=== PATIENT | male | born 1990 | race Caucasian/White ===

== ENCOUNTER 2017-08-11 14:54 | Emergency (ER) | payer BC, SELFPAY ==
[2017-08-11 14:55] VITALS: BP 137/84; PULSE 76; RESP 20; TEMP 36.6; O2SAT 99; BMI 29.0
--- NOTE | 2017-08-11 15:24 | CT_ITS ---
CT abdomen pelvis wo con CLINICAL INDICATION: ITS.REASON: LLQ PAIN ORDERING PHYSICIAN: Darcy Coffey MD PATIENT AGE: 27 years COMPARISON: None TECHNIQUE: Axial images obtained with sagittal and coronal reformats. PROCEDURE: Oral Contrast: None IV Contrast: None . FINDINGS: There is a moderate sized hiatal hernia. Calcified granuloma is present in the left lower lobe. The liver, gallbladder, spleen, adrenal glands, and pancreas have an unremarkable unenhanced CT appearance. No renal calculi or hydronephrosis. No obstructing ureteral calculi. There are few small retroperitoneal lymph nodes which are nonspecific. No intestinal obstruction or free air. There is some hyperdensity at the base of the appendix which may be due to an appendicolith. No evidence of appendicitis or diverticulitis. There is a mild amount retained colonic feces no focal inflammatory change evident. No acute finding in the pelvis. No acute bony anomalies. There is mild thoracic kyphosis with mild chronic appearing wedging of lower thoracic vertebral body. IMPRESSION: No acute abdominal or pelvic findings Mild amount retained colonic feces Moderate-sized hiatal hernia
--- NOTE | 2017-08-11 15:29 | HMH.EDABDPAI ---
ED Disposition Clinical Impression: Hiatal hernia with gastroesophageal reflux disease and esophagitis Disposition: Home, Self-Care Condition on Discharge: Fair Instructions: DI for Hiatal Hernia Additional Instructions: Elevate HOB on blocks and take Gas X as directed. 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 The time I documented below is in addition to time spent performing reported procedures but includes the following listed in this critical care notation. Medical Decision Making Vital Signs: 08/11/17 14:55 08/11/17 16:23 Temperature 97.9 F Temperature Source Oral Pulse Rate [Right Radial] 76 94 H Respiratory Rate 20 20 Blood Pressure [Right Arm] 137/84 139/67 Blood Pressure Mean [Right Arm] 101 91 Blood Pressure Source [Right Arm] Automatic Cuff Blood Pressure Position [Right Arm] Sitting 02 Sat by Pulse Oximetry 99 99 Oxygen Delivery Method Room Air Room Air - Lab Data Lab results reviewed: Yes: I reviewed the patient's lab results. Lab Results 08/11/17 15:12: WBC 7.7, RBC 5.13, Hgb 16.1, Hct 46.1, MCV 89.8, MCH 31.3 H, MCHC 34.9, RDW 12.6, Plt Count 270, MPV 8.2, Neut % (Auto) 48.4, Lymph % (Auto) 41.3, [place] % (Auto) 7.3, Eos % (Auto) 2.4, Baso % (Auto) 0.6, Neut # (Auto) 3.7, Lymph # (Auto) 3.2, [place] # (Auto) 0.6, Eos # (Auto) 0.2, Baso # (Auto) 0.1 08/11/17 15:12: Sodium 137, Potassium 4.2, Chloride 100, Carbon Dioxide 32, Anion Gap 9.2, BUN 9, Creatinine 0.90, Estimated Creat Clear 171, Estimated GFR 100, Est GFR ( Amer) 121, Glucose 100, Calcium 9.3, Total Bilirubin 0.2, AST 16, ALT 28, Alkaline Phosphatase 112, Total Protein 7.4, Albumin 3.8, Globulin 3.6 H, Albumin/Globulin Ratio 1.1, Amylase 52 08/11/17 15:12: Lipase 92 08/11/17 15:26: Urine Color Yellow, Urine Appearance Clear, Urine pH 6.5, Ur Specific [place] 1.015, Urine Protein Negative, Urine Glucose (UA) Negative, Urine Ketones Negative, Urine Blood Negative, Urine Nitrate Negative, Urine Bilirubin Negative, Urine Urobilinogen 0.2, Ur Leukocyte Esterase Negative, Ur Squamous Epith Cells Occasional, Urine Bacteria Trace Result diagrams: 08/11/17 15:12 08/11/17 15:12 Orders (Tests/Meds): ED MEDICATIONS Generic Name Dose Route Start Last Admin Trade Name Freq PRN Reason Stop Dose Admin Sodium Chloride 10 ml 08/11/17 15:25 Saline Flush 10ml Syringe IV 09/10/17 15:24 NEEDED PRN Maintain IV Site Discontinued Medications Generic Name Dose Route Start Last Admin Trade Name Freq PRN Reason Stop Dose Admin Sodium Chloride 1,000 mls @ 999 mls/hr 08/11/17 15:30 08/11/17 15:27 Sod Chloride 0.9% 1000ml Bag IV 08/11/17 16:30 999 mls/hr .Q1H1M AJ Administration Ketorolac Tromethamine 30 mg 08/11/17 15:26 08/11/17 15:28 Toradol 30mg/Ml Vial IV 08/11/17 15:27 30 mg ONCE ONE Administration Ondansetron HCl 4 mg 08/11/17 15:26 08/11/17 15:28 Zofran 4mg/2ml Vial IV 08/11/17 15:27 4 mg ONCE ONE Administration Pantoprazole Sodium 40 mg 08/11/17 15:35 08/11/17 17:42 Protonix 40mg Vial IV 08/11/17 15:36 40 mg ONCE ONE Administration Sodium Chloride 8 ml 08/11/17 15:35 Saline Flush 10ml Syringe IV 08/11/17 15:36 ONCE ONE - CT Data CT Scan: Abdomen, Pelvis Time Received: 18:[address] Reviewed: Yes: I have reviewed the patient's CT results, I
--- NOTE | 2017-08-11 15:32 | ED_ITS ---
ED Disposition Clinical Impression: Hiatal hernia with gastroesophageal reflux disease and esophagitis Disposition: Home, Self-Care Condition on Discharge: Fair Instructions: DI for Hiatal Hernia Additional Instructions: Elevate HOB on blocks and take Gas X as directed. 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 The time I documented below is in addition to time spent performing reported procedures but includes the following listed in this critical care notation. Medical Decision Making Vital Signs: 08/11/17 14:55 08/11/17 16:23 Temperature 97.9 F Temperature Source Oral Pulse Rate [Right Radial] 76 94 H Respiratory Rate 20 20 Blood Pressure [Right Arm] 137/84 139/67 Blood Pressure Mean [Right Arm] 101 91 Blood Pressure Source [Right Arm] Automatic Cuff Blood Pressure Position [Right Arm] Sitting 02 Sat by Pulse Oximetry 99 99 Oxygen Delivery Method Room Air Room Air - Lab Data Lab results reviewed: Yes: I reviewed the patient's lab results. Lab Results 08/11/17 15:12: WBC 7.7, RBC 5.13, Hgb 16.1, Hct 46.1, MCV 89.8, MCH 31.3 H, MCHC 34.9, RDW 12.6, Plt Count 270, MPV 8.2, Neut % (Auto) 48.4, Lymph % (Auto) 41.3, [place] % (Auto) 7.3, Eos % (Auto) 2.4, Baso % (Auto) 0.6, Neut # (Auto) 3.7 , Lymph # (Auto) 3.2, [place] # (Auto) 0.6, Eos # (Auto) 0.2, Baso # (Auto) 0.1 08/11/17 15:12: Sodium 137, Potassium 4.2, Chloride 100, Carbon Dioxide 32, Anion Gap 9.2, BUN 9, Creatinine 0.90, Estimated Creat Clear 171, Estimated GFR 100, Est GFR ( Amer) 121, Glucose 100, Calcium 9.3, Total Bilirubin 0.2, AST 16, ALT 28, Alkaline Phosphatase 112, Total Protein 7.4, Albumin 3.8, Globulin 3.6 H, Albumin/Globulin Ratio 1.1, Amylase 52 08/11/17 15:12: Lipase 92 08/11/17 15:26: Urine Color Yellow, Urine Appearance Clear, Urine pH 6.5, Ur Specific [place] 1.015, Urine Protein Negative, Urine Glucose (UA) Negative, Urine Ketones Negative, Urine Blood Negative, Urine Nitrate Negative, Urine Bilirubin Negative, Urine Urobilinogen 0.2, Ur Leukocyte Esterase Negative, Ur Squamous Epith Cells Occasional, Urine Bacteria Trace Result diagrams: 08/11/17 15:12 08/11/17 15:12 Orders (Tests/Meds): ED MEDICATIONS Generic Name Dose Route Start Last Admin Trade Name Freq PRN Reason Stop Dose Admin Sodium Chloride 10 ml 08/11/17 15:25 Saline Flush 10ml Syringe IV 09/10/17 15:24 NEEDED PRN Maintain IV Site Discontinued Medications Generic Name Dose Route Start Last Admin Trade Name Freq PRN Reason Stop Dose Admin Sodium Chloride 1,000 mls @ 999 mls/hr 08/11/17 15:30 08/11/17 15:27 Sod Chloride 0.9% 1000ml Bag IV 08/11/17 16:30 999 mls/hr .Q1H1M AJ Administration Ketorolac Tromethamine 30 mg 08/11/17 15:26 08/11/17 15:28 Tor[place]
[2017-08-11 15:43] LABS: Appearance,Urine CLEAR (Clear); Bilirubin,Urine Negative (Negative); Blood, Urine Negative (Negative); Color,Urine YELLOW (Yellow); Glucose,Urine (UA) Negative (Negative); Ketones,Urine Negative (Negative); Leukocyte Esterase,Urine Negative (Negative); Microscopic, Urine URINE MICROSCOPIC (MICROSCOPIC); Nitrate,Urine Negative (Negative); PH,Urine 6.5 (5.0-8.5); Protein,Urine Negative (Negative); Specific Gravity, Urine 1.015 (1.005-1.030); Urobilinogen,Urine 0.2 EU/dl (0.2)
[2017-08-11 15:45] LABS: Basophils # 0.1 K/mm3 (0-0.2); Basophils % 0.6 % (0.1-2.0); Eosinophils # 0.2 K/mm3 (0.0-0.4); Eosinophils % 2.4 % (0.1-12.0); Hematocrit 46.1 % (42.0-52.0); Hemoglobin 16.1 g/dL (14.1-18.0); Lymphocytes # 3.2 K/mm3 (0.7-4.5); Lymphocytes % 41.3 K/mm3 (10-50); Mean Corpuscular HGB Conc 34.9 g/dL (31.8-35.4); Mean Corpuscular Hemoglobin 31.3 pg (27.0-31.2); Mean Corpuscular Volume 89.8 fl (80-94); Mean Platelet Volume 8.2 fl (7.4-10.4); Monocytes # 0.6 K/mm3 (0.1-1.0); Monocytes % 7.3 % (1.7-9.3); Neutrophils # 3.7 K/mm3 (1.8-7.8); Neutrophils % 48.4 % (37.0-80.0); Platelet Count 270 K/mm3 (142-424); Red Blood Count 5.13 M/mm3 (4.60-6.20); Red Cell Distribution Width 12.6 % (11.5-17.5); White Blood Count 7.7 K/mm3 (4.8-10.8)
[2017-08-11 15:51] LABS: Bacteria,Urine Trace /lpf; Squamous Epithelial Cell,Urine Occasional #/hpf (0-5)
[2017-08-11 16:02] LABS: Alanine Aminotransferase 28 U/L (12-78); Albumin Level 3.8 gm/dL (3.4-5.0); Albumin/Globulin Ratio 1.1 (1.1-1.8); Alkaline Phosphatase 112 U/L (46-116); Amylase 52 U/L (25-125); Anion Gap 9.2 mEq/L (5-15); Aspartate Amino Transferase 16 U/L (15-37); Bilirubin,Total 0.2 mg/dL (0.2-1.0); Blood Urea Nitrogen 9 mg/dL (7-18); Calcium 9.3 mg/dL (8.5-10.1); Carbon Dioxide 32 mmol/L (21.0-32.0); Chloride 100 mmol/L (98-107); Creatinine Clearance Estimated 171 mL/min (0-300); Estimated Glomerular Filt Rate 100 ml/min (>60); GFR (African American) 121 ML/MIN (>60); Globulin 3.6 gm/dl (1.3-3.2); Glucose 100 mg/dL (74-106); Potassium 4.2 mmoL/L (3.5-5.1); Sodium 137 mmol/L (136-145); Total Protein,Serum 7.4 gm/dL (6.4-8.2)
[2017-08-11 16:23] VITALS: BP 139/67; PULSE 94; RESP 20; O2SAT 99
--- NOTE | 2017-08-11 16:26 | PC.NURSE ---
PT RESTING COMFORTABLY PS: 12/11
[2017-08-11 16:32] LABS: Lipase 92 u/L (73-393)
== END 2017-08-11 18:51 | disposition home or self-care (01) ==
PROVIDERS: Emergency Provider General Practice; Family Provider Family Medicine; PCP Family Medicine
DX: K44.9 Diaphragmatic hernia without obstruction or gangrene (principal); K21.0 Gastro-esophageal reflux disease with esophagitis; Z88.0 Allergy status to penicillin; Z87.442 Personal history of urinary calculi
CPT/HCPCS: 74176; 80053; 81001; 82150; 83690; 85025; 96365; 96375; 99284; J2405

== ENCOUNTER 2020-07-09 14:17 | Emergency (ER) | payer BC, SELFPAY ==
[2020-07-09] VITALS (7 sets, daily range): BP systolic 119–170; BP diastolic 75–106; PULSE 75–121; RESP 16–20; TEMP 36.6; O2SAT 93–98; BMI 30.3
[2020-07-09 14:44] LABS: Basophils # 0.1 K/mm3 (0-0.2); Basophils % 0.5 % (0.1-2.0); Eosinophils # 0.1 K/mm3 (0.0-0.4); Eosinophils % 0.7 % (0.1-12.0); Hematocrit 45.7 % (42.0-52.0); Hemoglobin 15.8 g/dL (14.1-18.0); Lymphocytes # 3.8 K/mm3 (0.7-4.5); Lymphocytes % 45.2 % (10-50); Mean Corpuscular HGB Conc 34.6 g/dL (31.8-35.4); Mean Corpuscular Hemoglobin 31.1 pg (27.0-31.2); Mean Corpuscular Volume 90.1 fl (80-94); Monocytes # 0.5 K/mm3 (0.1-1.0); Neutrophils % 47.6 % (37.0-80.0); Platelet Count 310 K/mm3 (142-424); Red Blood Count 5.07 M/mm3 (4.60-6.20); Red Cell Distribution Width 12.7 % (11.5-17.5); White Blood Count 8.5 K/mm3 (4.8-10.8)
[2020-07-09 15:02] LABS: Chloride 102 mmol/L (98-107); Potassium 3.5 mmoL/L (3.5-5.1); Sodium 138 mmol/L (136-145)
--- NOTE | 2020-07-09 15:04 | CT_ITS ---
PROCEDURE: CT ABDOMEN PELVIS W CON CLINICAL INDICATION: PAIN Left upper quadrant pain COMPARISON: CT ABDPELWO CT abdomen pelvis wo con from 08/11/[address] abdomen pelvis w con from 03/11/2018 TECHNIQUE: IV Contrast: 75ML Isovue 370 Oral Contrast None Axial images obtained with sagittal and coronal reformats. All CT scans at the facility use one or more dose reduction, viz: automated exposure control, ma/kV adjustment per patient size (including targeted exams where dose is matched to indication, i.e. head), or iterative reconstruction technique. FINDINGS: There has been prior knee since fundoplication. Hyperdensity noted at the surgical site posteriorly and is not significantly changed from an older exam of 03/11/2018. There is some minimal pericardial thickening. The liver, gallbladder, spleen, adrenal glands, pancreas, and kidneys have an unremarkable appearance. The appendix is slightly prominent but not significantly changed. No intestinal obstruction or free air. There is a moderate amount of retained colonic feces. There are degenerative changes in the lower thoracic spine with kyphosis IMPRESSION: Status post prior Juan M fundoplication. Constipation Dictated by: Perry Leyva MD 07/10/2020 07:06 Perry Leyva MD in [place] 07/10/2020 07:06
[2020-07-09 15:05] LABS: Alanine Aminotransferase 29 U/L (12-78); Alkaline Phosphatase 134 U/L (38-126); Amylase 57 U/L (30-110); Anion Gap 11.5 mEq/L (5-15); Aspartate Amino Transferase 44 U/L (17-59); Bilirubin,Total 0.5 mg/dl (0.2-1.3); Blood Urea Nitrogen 13 mg/dl (9-20); Calcium 9.4 mg/dl (8.4-10.2); Carbon Dioxide 28 mmol/L (22.0-30.0); Creatinine Clearance Estimated 174 mL/min (50-200); Estimated Glomerular Filt Rate 98 ml/min (>60); GFR (African American) 118 ML/MIN (>60); Glucose 110 mg/dl (74-100)
[2020-07-09 15:06] LABS: Albumin Level 4.6 g/dl (3.5-5.0); Albumin/Globulin Ratio 1.6 (1.1-1.8); Globulin 2.9 g/dL (1.3-3.2); Lipase 94 U/L (23-300); Total Protein,Serum 7.5 g/dl (6.3-8.2)
--- NOTE | 2020-07-09 16:03 | HMH.EDGENADL ---
ED Disposition Clinical Impression: Left upper quadrant abdominal pain, History of Naz fundoplication Incisional hernia Qualifiers: Obstruction and gangrene presence: without obstruction or gangrene Qualified Code(s): K43.2 - Incisional hernia without obstruction or gangrene Disposition: Home, Self-Care Condition on Discharge: Good Additional Instructions: See Dr. Conti in his office tomorrow. Call tomorrow morning to make that appointment. Take your CAT scan disc with you. Return to the emergency department if worsening pain or nausea/dry heaves or if you develop fever or severe abdominal distention. Additional instructions for CONTROLLED SUBSTANCES: You have been prescribed a medication that is a controlled substance. Controlled substances include pain medications known as opiates and sedative nerve medications known as benzodiazepines. Tramadol, fioricet, and gabapentin are also controlled substances. Some common opiates include: Codeine (such as Tylenol #3) Hydrocodone (Vicodin, Lortab, Lorcet, Carter) Oxycodone (Percocet, Percodan, Oxycodone, Oxy IR) Some common benzodiazepines include: Diazepam (Valium) Lorazepam (Ativan) Alprazolam (Xanax) Clonazepam (Klonopin) Oxazepam (Serax) All of these controlled substances are highly addictive and frequently abused. Misuse can and frequently does lead to addiction as well as overdose and . Medication should be stored in a locked cabinet or other secure storage unit. Do not store the medication in a motor vehicle. Short term supplies, 3 days or less, are prescribed because of the highly addictive nature of the medication. Any of the controlled substance medication NOT taken should be disposed of properly and NOT SAVED. The recommended method of disposing of unused medications is: Place the medicines in a sealable plastic bag. If the medicine is a solid, crush it or add water to dissolve it. Add something undesirable (cat litter, coffee grounds, etc.) Dispose of sealed bag in household trash Do not flush or pour unused medicines down a sink or drain. Controlled substances should not be shared, given away or sold. Because of the addictive nature and frequent abuse, these medications are sometimes stolen. These medications should be kept in a safe place where they cannot be stolen. Do not keep them in your car or purse. Lost or stolen prescriptions for controlled substances WILL NOT BE REFILLED in this emergency department, regardless of whether a police report was filed. Referrals: Flora Key MD [Primary Care Provider] - - Critical Care Critical Care Time: No Attestation: On 07/09/20, the high probability of a clinically significant, sudden or life threatening deterioration of the following system(s) required my full and direct attention, intervention and personal management. The time I documented below is in addition to time spent performing reported procedures but includes the following listed in this critical care notation. Medical Decision Making - Martín Inquiry Pt receiving controlled substance: Yes Martín was queried for this patient: No Reason not queried -: Emergent pt cond-no time Risks and benefits of using a controlled substance: were not discussed with pt by me Vital Signs: 07/09/20 14:18 07/09/20 15:48 07/09/20 16:00 Temperature 98 F Temperature Source Oral Pulse Rate [Radial] 121 H 91 H 106 H Respiratory Rate 20 Blood Pressure [Right Arm] 149/88 H 170/106 H 158/101 H Blood Pressure Mean [Right Arm] 108 127 120 Blood Pressure Source [Right Arm] Automatic Cuff Automatic Cuff Blood Pressure Position [Right Arm] Sitting Sitting Sitting 02 Sat by Pulse Oximetry 98 95 97 Oxygen Delivery Method Room Air Room Air Room Air 07/09/20 16:30 07/09/20 17:00 Temperature Temperature Source Pulse Rate [Radial] 87 89 Respiratory Rate Blood Pressure [Right Arm] 126/79 124/82 Blood Pressure Mean [Right Arm] 94 96
--- NOTE | 2020-07-09 16:23 | ECG_ITS ---
APPROVED REPORT Exam: Resting ECG HR:82 bpm ECG Measurements Heart Rate 82 AXES OH 142 P 27 QRSd 80 QRS 52 QT 350 T 34 QTc 408 Conclusion Normal sinus rhythm Normal ECG Electronically signed by : Boris Garcia, 07/09/2020 19:53:47
[2020-07-09 16:40] LABS: D-Dimer 0.35 ug/mL (0.15-8.0)
[2020-07-09 16:49] LABS: Troponin I < 0.01 ng/ml (0.00-0.034)
--- NOTE | 2020-07-09 17:08 | XR_ITS ---
PROCEDURE: XR CHEST PORTABLE CLINICAL HISTORY: CHEST PAIN COMPARISON: CR CXR CHEST(2 VIEWS-NOT PORTABLE) from 10/15/2012 CR CXR CHEST(2 VIEWS-NOT PORTABLE) from 12/27/[address] ABDOMEN PELVIS WO CON from 07/09/2020 FINDINGS: Unremarkable cardiovascular structures. There is a small hiatal hernia. The lungs are clear without infiltrates, suspicious nodules, or pleural effusions. No acute bony abnormalities. IMPRESSION: Hiatal hernia otherwise negative Dictated by: Perry Leyva MD 07/10/2020 05:04 Perry Leyva MD in [place] 07/10/2020 05:04
--- NOTE | 2020-07-09 17:56 | PC.NURSE ---
[facility] [place] [facility] non destructive testing inspector for dr rajan regalado
--- NOTE | 2020-07-09 18:01 | PC.NURSE ---
Dr Dale speaking with Dr Maribeth Whitney.
== END 2020-07-09 18:23 | disposition home or self-care (01) ==
PROVIDERS: Emergency Provider Emergency Medicine; PCP Family Medicine
DX: R10.12 Left upper quadrant pain (principal); K43.2 Incisional hernia without obstruction or gangrene; Z98.890 Other specified postprocedural states; Z88.0 Allergy status to penicillin; F41.9 Anxiety disorder, unspecified; Z79.899 Other long term (current) drug therapy
CPT/HCPCS: 71045; 74177; 80053; 82150; 83690; 84484; 85025; 85378; 93005; 96365; 96375; 96376; 99284; J2405; Q9967

== ENCOUNTER 2020-07-09 20:22 | Emergency (ER) | payer BC, SELFPAY ==
[2020-07-09] VITALS (7 sets, daily range): BP systolic 120–162; BP diastolic 68–95; PULSE 65–95; RESP 16–18; TEMP 36.5–36.7; O2SAT 97–100; BMI 30.3
--- NOTE | 2020-07-09 20:48 | PC.NURSE ---
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
--- NOTE | 2020-07-09 20:58 | HMH.EDGENADL ---
ED Disposition Clinical Impression: Abdominal pain Qualifiers: Abdominal location: epigastric Qualified Code(s): R10.13 - Epigastric pain Disposition: Home, Self-Care Condition on Discharge: Good Instructions: DI for Acute Pain -- Adult Additional Instructions: keep appt in am Referrals: Flora Key MD [Primary Care Provider] - - Critical Care Critical Care Time: No Attestation: On 07/09/20, the high probability of a clinically significant, sudden or life threatening deterioration of the following system(s) required my full and direct attention, intervention and personal management. The time I documented below is in addition to time spent performing reported procedures but includes the following listed in this critical care notation. Medical Decision Making - Medical Records Medical records reviewed: Yes: I reviewed the patient's medical records. - Martín Inquiry Pt receiving controlled substance: No Vital Signs: 07/09/20 20:25 07/09/20 20:55 07/09/20 22:25 Temperature 98.0 F Temperature Source Oral Pulse Rate [Left Radial] 95 H 89 81 Respiratory Rate 16 16 16 Blood Pressure [Right Arm] 162/95 H 126/81 138/68 Blood Pressure Mean [Right Arm] 117 96 91 Blood Pressure Source [Right Arm] Automatic Cuff Automatic Cuff Automatic Cuff Blood Pressure Position [Right Arm] Sitting Sitting Sitting 02 Sat by Pulse Oximetry 100 99 97 Oxygen Delivery Method Room Air Room Air Room Air 07/09/20 22:30 07/09/20 23:00 Temperature Temperature Source Pulse Rate [Left Radial] 65 65 Respiratory Rate Blood Pressure [Right Arm] 138/68 127/80 Blood Pressure Mean [Right Arm] 91 95 Blood Pressure Source [Right Arm] Automatic Cuff Automatic Cuff Blood Pressure Position [Right Arm] Sitting Sitting 02 Sat by Pulse Oximetry 98 98 Oxygen Delivery Method Room Air Room Air - Lab Data Lab results reviewed: Yes: I reviewed the patient's lab results. Orders (Tests/Meds): ED MEDICATIONS Discontinued Medications Generic Name Dose Route Start Last Admin Trade Name Freq PRN Reason Stop Dose Admin Diatrizoate Meglum/Diatrizoate Sod 30 ml 07/09/20 21:16 07/09/20 21:17 Diatrizoate Demetra 66% & Diatrizoate Na 10% 30ml Udc PO 07/09/20 21:17 30 ml ONCE ONE Administration Hydromorphone HCl 2 mg 07/09/20 21:03 12/06/20 21:18 Hydromorphone 2mg/Ml Syringe IV 07/09/20 21:04 2 mg ONCE ONE Administration ORDERS Category Date Time Status CT abdomen pelvis wo con Stat Cat Scan 07/09/20 21:20 Taken - CT Data CT Scan: Abdomen Time Received: 23:[address] Reviewed: Yes: I have viewed the radiologist's interpretation Preliminary Findings: Normal/NAD (no obstruction) General Adult HPI - General Chief complaint: PAIN Stated complaint: Pain in Ribs lft side Time Seen by Provider: 07/09/20 21:08 Mode of Arrival: Ambulatory Source of Information: Patient, Medical Record Limitations: No Limitations Description of Symptoms (Recalled from ER Triage Doc. by RN): pt was seen in the ER earlier today and diagnosed with a hernia. pt has an appointment with his surgeon in the morning but stated he has had an increase in pain. pt denies any nausea at this time and stated he was sent home with phenergan that has given him relief. - History of Present Illness HPI narrative: pt with hx of prev surg at epigastric area with pain - was seen in the ed - pt has increased pain at prev surg site - no vomiting Onset (ago): hour(s) Location: abdomen Severity: moderate Associated symptoms: denies other symptoms - Related Data Home Medications Medication Instructions Recorded Confirmed Dextroamphetamine/Amphetamine 30 mg PO DAILY 12/01/17 12/08/18 [Adderall Xr 30 mg Capsule] Omeprazole [Omeprazole 20mg 20 mg PO DAILY 12/01/17 12/08/18 Capsule] Hydrocodone/Acetaminophen [Lortab 15 ml PO Q4HP PRN 03/11/18 12/08/18 7.5/325mg 15mL UDC] ALPRAZolam [Xanax 2mg Tab] 2 mg PO TID 12/08/18 12/08/18
--- NOTE | 2020-07-09 21:14 | PC.NURSE ---
pt mother at bedside at this time
--- NOTE | 2020-07-09 21:20 | CT_ITS ---
PROCEDURE: CT ABDOMEN PELVIS WO CON CLINICAL INDICATION: abd. pain Epigastric pain with nausea COMPARISON: CT ABDPELW CT abdomen pelvis w con from 03/11/[address] ABDOMEN PELVIS W CON from 07/09/2020 TECHNIQUE: Axial images obtained with sagittal and coronal reformats. All CT scans at the facility use one or more dose reduction, viz: automated exposure control, ma/kV adjustment per patient size (including targeted exams where dose is matched to indication, i.e. head), or iterative reconstruction technique. FINDINGS: LOWER THORAX: S/p Juan M fundoplication.. There are some hyperdensities along the posterior aspect of the operative bed which are similar to 03/11/2018. ABDOMEN & PELVIS: Numerous surgical clips are present in the left upper quadrant lateral to the stomach. Status post knee some fundoplication. The liver, spleen, adrenal glands, pancreas, and kidneys have an unremarkable appearance. There is some residual contrast within the renal collecting system. No intestinal obstruction or free air. There is mild prominence of the appendix which had a similar appearance on a older study of 03/11/2018. No stranding of the periappendiceal fat. Bowel gas pattern is nonspecific. No intestinal obstruction or free air. No pelvic mass or abnormal fluid collection. There are degenerative changes in the thoracic spine with kyphosis of the lower thoracic spine. IMPRESSION: 1. Status post knee since fundoplication with postsurgical changes. 2. Mild prominence of the appendix which is not significantly changed. 3. Thoracic kyphosis with spondylosis Dictated by: Perry Leyva MD 07/10/2020 06:26 Perry Leyva MD in [place] 07/10/2020 06:26
--- NOTE | 2020-07-09 21:20 | PC.NURSE ---
RAD informed that pt finished PO contrast and to only wait 15 minutes for scan
--- NOTE | 2020-07-09 21:50 | PC.NURSE ---
pt to RAD
--- NOTE | 2020-07-09 22:43 | PC.NURSE ---
called RAD and asked about pt CT report
--- NOTE | 2020-07-09 23:22 | PC.NURSE ---
RAD stated pt CT scan is being read at this time. still no results
== END 2020-07-09 23:47 | disposition home or self-care (01) ==
PROVIDERS: Emergency Provider Emergency Medicine; PCP Family Medicine
DX: R10.13 Epigastric pain (principal); R10.12 Left upper quadrant pain; K43.2 Incisional hernia without obstruction or gangrene; Z88.0 Allergy status to penicillin; F41.9 Anxiety disorder, unspecified; Z79.899 Other long term (current) drug therapy
CPT/HCPCS: 74176; 96375; 99283

== ENCOUNTER 2020-11-12 19:56 | Emergency (ER) | payer OTHER, SELFPAY ==
[2020-11-12 20:06] VITALS: BP 148/96; PULSE 76; RESP 17; TEMP 36.8; O2SAT 98; BMI 23.8
--- NOTE | 2020-11-12 20:15 | CT_ITS ---
PROCEDURE: CT ABDOMEN PELVIS W CON CLINICAL INDICATION: abdomen pain Nausea and vomiting left upper quadrant pain with nausea vomiting and diarrhea COMPARISON: CT CT ABDOMEN PELVIS WO CON from 07/09/2020 TECHNIQUE: IV Contrast: 75ML Isovue 370 Oral Contrast None Axial images obtained with sagittal and coronal reformats. All CT scans at the facility use one or more dose reduction, viz: automated exposure control, ma/kV adjustment per patient size (including targeted exams where dose is matched to indication, i.e. head), or iterative reconstruction technique. FINDINGS: LOWER THORAX: No acute finding ABDOMEN & PELVIS: Fundoplication changes similar to the previous exam. Hepatic steatosis. The spleen, gallbladder, adrenal glands, pancreas, and kidneys have an unremarkable appearance. Mild wall thickening of the small bowel in the mid abdominal region in the left upper quadrant. There are few scattered air-fluid levels within the small and large bowel. No bowel distension apparent. No evidence of appendicitis or diverticulitis. No pelvic mass or abnormal fluid collection. There are degenerative changes in the lower thoracic spine with kyphosis. IMPRESSION: Scattered air-fluid levels within nondistended large and small bowel with small bowel wall thickening in the upper abdomen suggesting enterocolitis. Dictated by: Perry Leyva MD 11/13/2020 06:05 Perry Leyva MD in [place] 11/13/2020 06:05
--- NOTE | 2020-11-12 20:19 | HMH.EDGENADL ---
ED Disposition Clinical Impression: Left upper quadrant abdominal pain Disposition: Home, Self-Care Condition on Discharge: Fair Instructions: DI for Acute Abdominal Pain Additional Instructions: Follow-up with your surgeon. Tylenol 3 for pain, Phenergan for nausea. Additional instructions for ABDOMINAL PAIN: See your physician as soon as possible for further evaluation. Return immediately if worsening abdominal pain, vomiting, shortness of breath, fever, vomiting of blood or abdominal distention. Additional instructions for CONTROLLED SUBSTANCES: You have been prescribed a medication that is a controlled substance. Controlled substances include pain medications known as opiates and sedative nerve medications known as benzodiazepines. Tramadol, fioricet, and gabapentin are also controlled substances. Some common opiates include: Codeine (such as Tylenol #3) Hydrocodone (Vicodin, Lortab, Lorcet, Derby) Oxycodone (Percocet, Percodan, Oxycodone, Oxy IR) Some common benzodiazepines include: Diazepam (Valium) Lorazepam (Ativan) Alprazolam (Xanax) Clonazepam (Klonopin) Oxazepam (Serax) All of these controlled substances are highly addictive and frequently abused. Misuse can and frequently does lead to addiction as well as overdose and . Medication should be stored in a locked cabinet or other secure storage unit. Do not store the medication in a motor vehicle. Short term supplies, 3 days or less, are prescribed because of the highly addictive nature of the medication. Any of the controlled substance medication NOT taken should be disposed of properly and NOT SAVED. The recommended method of disposing of unused medications is: Place the medicines in a sealable plastic bag. If the medicine is a solid, crush it or add water to dissolve it. Add something undesirable (cat litter, coffee grounds, etc.) Dispose of sealed bag in household trash Do not flush or pour unused medicines down a sink or drain. Controlled substances should not be shared, given away or sold. Because of the addictive nature and frequent abuse, these medications are sometimes stolen. These medications should be kept in a safe place where they cannot be stolen. Do not keep them in your car or purse. Lost or stolen prescriptions for controlled substances WILL NOT BE REFILLED in this emergency department, regardless of whether a police report was filed. Referrals: Flora Key MD [Primary Care Provider] - - Critical Care Critical Care Time: No Attestation: On 11/12/20, the high probability of a clinically significant, sudden or life threatening deterioration of the following system(s) required my full and direct attention, intervention and personal management. The time I documented below is in addition to time spent performing reported procedures but includes the following listed in this critical care notation. Medical Decision Making - Medical Records Medical records reviewed: Yes: I reviewed the patient's medical records. MR Comment: Reviewed emergency department visits on 07/09/2020. 2 visits on the same day. Seen by me in this emergency department on the first visit. CT scans from both visits reviewed. - Martín Inquiry Pt receiving controlled substance: Yes Martín was queried for this patient: Yes Reference #:: [id number] Risks and benefits of using a controlled substance: were discussed with pt by me Comment: pending, manual process Vital Signs: 11/12/20 20:06 Temperature 98.2 F Temperature Source Oral Pulse Rate [Right Brachial] 76 Respiratory Rate 17 Blood Pressure [Right Arm] 148/96 H Blood Pressure Mean [Right Arm] 113 Blood Pressure Source [Right Arm] Automatic Cuff Blood Pressure Position [Right Arm] Sitting 02 Sat by Pulse Oximetry 98 Oxygen Delivery Method Room Air - Lab Data Lab Results 11/12/20 20:00: WBC 16.1 H, RBC 5.29, Hgb 16.6, Hct 46.6, MCV 88.1, MCH 31.3 H, MCHC 35.5 H, RDW 13.4, Pl
[2020-11-12 20:27] LABS: Basophils % 0.1 % (0.1-2.0); Eosinophils # 0.1 K/mm3 (0.0-0.4); Eosinophils % 0.7 % (0.1-12.0); Hematocrit 46.6 % (42.0-52.0); Hemoglobin 16.6 g/dL (14.1-18.0); Lymphocytes # 1.2 K/mm3 (0.7-4.5); Lymphocytes % 7.3 % (10-50); MANUAL DIFFERENTIAL MANUAL DIFFERENTIAL (MANUAL DIFF); Mean Corpuscular HGB Conc 35.5 g/dL (31.8-35.4); Mean Corpuscular Hemoglobin 31.3 pg (27.0-31.2); Mean Corpuscular Volume 88.1 fl (80-94); Mean Platelet Volume 8.2 fl (7.4-10.4); Monocytes # 0.7 K/mm3 (0.1-1.0); Monocytes % 4.3 % (1.7-9.3); Neutrophils # 14.1 K/mm3 (1.8-7.8); Neutrophils % 87.6 % (37.0-80.0); Platelet Count 299 K/mm3 (142-424); Red Blood Count 5.29 M/mm3 (4.60-6.20); Red Cell Distribution Width 13.4 % (11.5-17.5); White Blood Count 16.1 K/mm3 (4.8-10.8)
[2020-11-12 20:28] LABS: Chloride 105 mmol/L (98-107); Potassium 3.9 mmoL/L (3.5-5.1); Sodium 139 mmol/L (136-145)
[2020-11-12 20:31] LABS: Amylase 81 U/L (30-110); Anion Gap 11.9 mEq/L (5-15); Blood Urea Nitrogen 16 mg/dl (9-20); Carbon Dioxide 26 mmol/L (22.0-30.0); Creatinine Clearance Estimated 154 mL/min (50-200); Estimated Glomerular Filt Rate 112 ml/min (>60); GFR (African American) 136 ML/MIN (>60); Lipase 103 U/L (23-300)
[2020-11-12 20:32] LABS: Calcium 9.5 mg/dl (8.4-10.2); Glucose 113 mg/dl (74-100)
[2020-11-12 20:37] LABS: C-Reactive Protein 6.2 mg/L (0-4)
[2020-11-12 20:48] LABS: Lymphocytes % 5 % (10-50); Monocytes % 7 % (2-9); Neutrophils % 88 % (42-76); Platelet Estimate Normal; RBC Morphology Normal; Total Cells Counted 100
[2020-11-12 20:51] LABS: Erythrocyte Sedimentation Rate 7 mm/hr (0-15)
[2020-11-12 21:07] VITALS: BP 154/85; PULSE 87; RESP 16; O2SAT 98
[2020-11-12 21:31] VITALS: BP 102/62; PULSE 83; RESP 18; O2SAT 95
[2020-11-12 22:33] VITALS: BP 130/90; PULSE 82; RESP 16; TEMP 36.9; O2SAT 97
== END 2020-11-12 22:35 | disposition home or self-care (01) ==
PROVIDERS: Emergency Provider Emergency Medicine; PCP Family Medicine
DX: R10.12 Left upper quadrant pain (principal); R10.13 Epigastric pain; R03.0 Elevated blood-pressure reading, without diagnosis of hypertension; Z79.899 Other long term (current) drug therapy
CPT/HCPCS: 74177; 80048; 82150; 83690; 85007; 85025; 85651; 86140; 96365; 96375; 99282; J2405; Q9967

== ENCOUNTER 2021-02-10 09:03 | Emergency (ER) | payer OTHER, SELFPAY ==
[2021-02-10 09:11] VITALS: BP 170/113; PULSE 92; RESP 18; TEMP 36.9; O2SAT 100
--- NOTE | 2021-02-10 09:11 | PC.NURSE ---
Trauma Alert paged.
--- NOTE | 2021-02-10 09:14 | CT_ITS ---
PROCEDURE INFORMATION: Exam: CT Cervical Spine Without Contrast Exam date and time: 02/10/2021 9:14 AM Age: 30 years old Clinical indication: Injury or trauma; Fall; Additional info: Fell off ladder TECHNIQUE: Imaging protocol: Computed tomography images of the cervical spine without contrast. Radiation optimization: All CT scans at this facility use at least one of these dose optimization techniques: automated exposure control; mA and/or kV adjustment per patient size (includes targeted exams where dose is matched to clinical indication); or iterative reconstruction. COMPARISON: CR XR CHEST PORTABLE 02/10/2021 9:18 AM FINDINGS: Bones/joints: Vertebral body heights and alignment are within normal limits. There is no evidence of acute fracture or subluxation. Facet alignment is within normal limits. Spinous processes are intact. The lateral masses of C1 and the C1/C2 relationship are normal. The odontoid process is intact. The occipital condyles and their relationship with C1 are normal. Discs/Spinal canal/Neural foramina: See Bones/joints finding. Lungs: Lung apices are normal. Soft tissues: Unremarkable. IMPRESSION: No evidence of acute cervical spine fracture or subluxation.
--- NOTE | 2021-02-10 09:14 | CT_ITS ---
PROCEDURE INFORMATION: Exam: CT Head Without Contrast Exam date and time: 02/10/2021 9:14 AM Age: 30 years old Clinical indication: Injury or trauma; Fall; Additional info: Fell off ladder TECHNIQUE: Imaging protocol: Computed tomography of the head without contrast. Radiation optimization: All CT scans at this facility use at least one of these dose optimization techniques: automated exposure control; mA and/or kV adjustment per patient size (includes targeted exams where dose is matched to clinical indication); or iterative reconstruction. COMPARISON: No relevant prior studies available. FINDINGS: Brain: There is no evidence of acute territorial infarction, hemorrhage, mass, mass effect, or midline shift. There are no abnormal intra-axial or extra-axial fluid collections. Cerebral ventricles: No ventriculomegaly. Paranasal sinuses: Visualized sinuses are unremarkable. No fluid levels. Mastoid air cells: Visualized mastoid air cells are well aerated. Bones/joints: Unremarkable. No acute fracture. Soft tissues: Unremarkable. IMPRESSION: No acute intracranial abnormality.
--- NOTE | 2021-02-10 09:14 | PC.NURSE ---
Trauma Alert Cancelled.
--- NOTE | 2021-02-10 09:15 | CT_ITS ---
PROCEDURE INFORMATION: Exam: CT Lumbar Spine Without Contrast Exam date and time: 02/10/2021 9:15 AM Age: 30 years old Clinical indication: Injury or trauma; Fall; Additional info: Fall from ladder TECHNIQUE: Imaging protocol: Computed tomography images of the lumbar spine without contrast. Radiation optimization: All CT scans at this facility use at least one of these dose optimization techniques: automated exposure control; mA and/or kV adjustment per patient size (includes targeted exams where dose is matched to clinical indication); or iterative reconstruction. COMPARISON: CT THORACIC SPINE WO CON 02/10/2021 9:48 AM FINDINGS: Vertebrae: No acute fracture. Normal alignment. Discs/Spinal canal/Neural foramina: No significant disc protrusion. No severe spinal canal stenosis. No significant neural foraminal narrowing. Soft tissues: Unremarkable. IMPRESSION: No acute findings.
--- NOTE | 2021-02-10 09:15 | XR_ITS ---
PROCEDURE INFORMATION: Exam: XR Chest Exam date and time: 02/10/2021 9:15 AM Age: 30 years old Clinical indication: Injury or trauma; Fall; Blunt trauma (contusions or hematomas); Additional info: Fall from ladder TECHNIQUE: Imaging protocol: XR of the chest. Views: 1 view. COMPARISON: CR XR CHEST PORTABLE 07/09/2020 5:22 PM FINDINGS: Lungs: No consolidation. Pleural spaces: No pleural effusion. No pneumothorax. Heart/Mediastinum: No cardiomegaly. Bones/joints: Unremarkable. IMPRESSION: No acute findings.
--- NOTE | 2021-02-10 09:15 | CT_ITS ---
PROCEDURE INFORMATION: Exam: CT Thoracic Spine Without Contrast Exam date and time: 02/10/2021 9:15 AM Age: 30 years old Clinical indication: Injury or trauma; Fall; Additional info: Fall from ladder TECHNIQUE: Imaging protocol: Computed tomography images of the thoracic spine without contrast. Radiation optimization: All CT scans at this facility use at least one of these dose optimization techniques: automated exposure control; mA and/or kV adjustment per patient size (includes targeted exams where dose is matched to clinical indication); or iterative reconstruction. COMPARISON: CT CERVICAL SPINE WO CON 02/10/2021 9:43 AM FINDINGS: Vertebrae: There is some anterior wedging of multiple lower thoracic vertebrae from T8-T12. This is unchanged from the prior CT abdomen and pelvis examination from 11/12/2020. Vertebral body heights and alignment are otherwise within normal limits. There is no evidence of acute thoracic spine fracture or subluxation. Facet alignment is within normal limits.Spinous processes are intact. Discs/Spinal canal/Neural foramina: No significant disc protrusion. No severe spinal canal stenosis. No significant neural foraminal narrowing. Soft tissues: See Vertebrae finding. IMPRESSION: 1. No acute osseous injury to the thoracic spine. 2. Mild chronic anterior wedging in the lower thoracic spine from T8-T12.
--- NOTE | 2021-02-10 09:16 | XR_ITS ---
PROCEDURE INFORMATION: Exam: XR Right Tibia and Fibula Exam date and time: 02/10/2021 9:16 AM Age: 30 years old Clinical indication: Injury or trauma; Fall; Blunt trauma; Lower leg; Right; Additional info: Fall from ladder TECHNIQUE: Imaging protocol: XR Right tibia and fibula. Views: 2 views. COMPARISON: No relevant prior studies available. FINDINGS: Bones/joints: Normal. Soft tissues: Normal. IMPRESSION: No acute findings.
--- NOTE | 2021-02-10 09:16 | XR_ITS ---
PROCEDURE INFORMATION: Exam: XR Pelvis Exam date and time: 02/10/2021 9:16 AM Age: 30 years old Clinical indication: Injury or trauma; Fall; Blunt trauma (contusions or hematomas); Bilateral; Hip; Additional info: Fall from ladder TECHNIQUE: Imaging protocol: XR pelvis. Views: 1 or 2 view. COMPARISON: CT ABDOMEN PELVIS W CON 11/12/2020 8:32 PM FINDINGS: Bones/joints: There is mild loss of articular cartilage in the hips bilaterally. There is no fracture or subluxation. Soft tissues: Unremarkable. IMPRESSION: There is no fracture or subluxation.
--- NOTE | 2021-02-10 09:16 | XR_ITS ---
PROCEDURE INFORMATION: Exam: XR Right Foot Exam date and time: 02/10/2021 9:16 AM Age: 30 years old Clinical indication: Injury or trauma; Fall; Blunt trauma; Foot; Right; Additional info: Fall from ladder TECHNIQUE: Imaging protocol: XR Right foot. Views: 3 or more views. COMPARISON: No relevant prior studies available. FINDINGS: Bones/joints: Normal. Soft tissues: Normal. IMPRESSION: No acute findings.
--- NOTE | 2021-02-10 09:16 | XR_ITS ---
PROCEDURE INFORMATION: Exam: XR Right Femur Exam date and time: 02/10/2021 9:16 AM Age: 30 years old Clinical indication: Injury or trauma; Fall; Blunt trauma; Thigh or upper leg; Right; Additional info: Fall from ladder TECHNIQUE: Imaging protocol: XR Right femur. Views: 2 views. COMPARISON: CR XR PELVIS 1-2V 02/10/2021 9:20 AM FINDINGS: Bones/joints: There is no acute fracture. There is a bone island in the mid right femur. Soft tissues: Overlying clothing somewhat limits evaluation of the soft tissues. IMPRESSION: No acute fracture right femur.
--- NOTE | 2021-02-10 09:18 | HMH.EDGENADL ---
ED Disposition Clinical Impression: Fall from ladder Qualifiers: Encounter type: initial encounter Qualified Code(s): W11.XXXA - Fall on and from ladder, initial encounter Cervical strain Qualifiers: Encounter type: initial encounter Qualified Code(s): S16.1XXA - Strain of muscle, fascia and tendon at neck level, initial encounter Lumbar strain Qualifiers: Encounter type: initial encounter Qualified Code(s): S39.012A - Strain of muscle, fascia and tendon of lower back, initial encounter Contusion of right lower extremity Qualifiers: Encounter type: initial encounter Qualified Code(s): S80.11XA - Contusion of right lower leg, initial encounter Disposition: Home, Self-Care Condition on Discharge: Good Additional Instructions: Ibuprofen for pain. Rest. Ice for pain and swelling. Additional instructions for TRAUMA: See your physician as soon as possible for further evaluation. Return to the emergency department immediately if severe headache, altered mental status or confusion, severe chest pain, shortness of breath, abdominal pain, vomiting, severe neck pain, numbness or weakness of arms or legs. Prescriptions: Ibuprofen [Ibuprofen 800mg Tablet] 800 mg PO Q8HP PRN #15 tab PRN Reason: Moderate Pain Transmission Status: Received by [facility] Referrals: Provider,Referral, [Referring] - - Critical Care Critical Care Time: No Attestation: On 02/10/21, the high probability of a clinically significant, sudden or life threatening deterioration of the following system(s) required my full and direct attention, intervention and personal management. The time I documented below is in addition to time spent performing reported procedures but includes the following listed in this critical care notation. Medical Decision Making - Martín Inquiry Pt receiving controlled substance: No Vital Signs: 02/10/21 09:11 02/10/21 09:31 02/10/21 09:32 Temperature 98.5 F Temperature Source Oral Pulse Rate 98 H Pulse Rate [Left Brachial] 92 H Respiratory Rate 18 Blood Pressure 157/77 H Blood Pressure [Right Arm] 170/113 H Blood Pressure Mean 103 Blood Pressure Mean [Right Arm] 132 Blood Pressure Source [Right Arm] Automatic Cuff Blood Pressure Position [Right Arm] Sitting 02 Sat by Pulse Oximetry 100 97 99 Oxygen Delivery Method Room Air Room Air 02/10/21 10:30 Temperature Temperature Source Pulse Rate 92 H Pulse Rate [Left Brachial] Respiratory Rate Blood Pressure 168/90 H Blood Pressure [Right Arm] Blood Pressure Mean Blood Pressure Mean [Right Arm] Blood Pressure Source [Right Arm] Blood Pressure Position [Right Arm] 02 Sat by Pulse Oximetry 96 Oxygen Delivery Method - Lab Data Lab Results 02/10/21 09:10: WBC 7.8, RBC 5.10, Hgb 16.2, Hct 44.8, MCV 87.9, MCH 31.8 H, MCHC 36.1 H, RDW 13.0, Plt Count 285, MPV 8.5, Neut % (Auto) 51.9, Lymph % (Auto) 40.0, Dunn % (Auto) 6.1, Eos % (Auto) 1.1, Baso % (Auto) 0.8, Neut # (Auto) 4.1, Lymph # (Auto) 3.1, Dunn # (Auto) 0.5, Eos # (Auto) 0.1, Baso # (Auto) 0.1 02/10/21 09:10: Sodium 141, Potassium 3.5, Chloride 106, Carbon Dioxide 27, Anion Gap 11.5, BUN 9, Creatinine 0.90, Estimated Creat Clear 197, Estimated GFR 98, Est GFR ( Amer) 118, Glucose 112 H, Calcium 9.2, Total Bilirubin 0.5, AST 28, ALT 40, Alkaline Phosphatase 117, Total Protein 7.5, Albumin 4.5, Globulin 3.0, Albumin/Globulin Ratio 1.5 Result diagrams: 02/10/21 09:10 02/10/21 09:10 Orders (Tests/Meds): ED MEDICATIONS Discontinued Medications Generic Name Dose Route Start Last Admin Trade Name Nieves PRN Reason Stop Dose Admin Ketorolac Tromethamine 30 mg 02/10/21 10:21 02/10/21 10:41 Ketorolac 30mg/Ml Vial IV 02/10/21 10:22 30 mg ONCE ONE Administration - Radiology Data #1 Image(s): Chest, Pelvis, Femur, Tib/Fib, Foot/Toes Image Reviewed: Yes I reviewed the patient's radiology image, Yes I have re
[2021-02-10 09:24] LABS: Basophils # 0.1 K/mm3 (0-0.2); Basophils % 0.8 % (0.1-2.0); Eosinophils # 0.1 K/mm3 (0.0-0.4); Eosinophils % 1.1 % (0.1-12.0); Hematocrit 44.8 % (42.0-52.0); Hemoglobin 16.2 g/dL (14.1-18.0); Lymphocytes # 3.1 K/mm3 (0.7-4.5); Mean Corpuscular HGB Conc 36.1 g/dL (31.8-35.4); Mean Corpuscular Hemoglobin 31.8 pg (27.0-31.2); Mean Corpuscular Volume 87.9 fl (80-94); Mean Platelet Volume 8.5 fl (7.4-10.4); Monocytes # 0.5 K/mm3 (0.1-1.0); Monocytes % 6.1 % (1.7-9.3); Neutrophils # 4.1 K/mm3 (1.8-7.8); Neutrophils % 51.9 % (37.0-80.0); Platelet Count 285 K/mm3 (142-424); White Blood Count 7.8 K/mm3 (4.8-10.8)
[2021-02-10 09:31] VITALS: BP 157/77; PULSE 98; O2SAT 97; BMI 34.2
[2021-02-10 09:31] LABS: Chloride 106 mmol/L (98-107); Potassium 3.5 mmoL/L (3.5-5.1); Sodium 141 mmol/L (136-145)
[2021-02-10 09:32] VITALS: O2SAT 99
[2021-02-10 09:33] LABS: Alanine Aminotransferase 40 U/L (12-78); Aspartate Amino Transferase 28 U/L (17-59); Blood Urea Nitrogen 9 mg/dl (9-20); Creatinine Clearance Estimated 197 mL/min (50-200); Estimated Glomerular Filt Rate 98 ml/min (>60); GFR (African American) 118 ML/MIN (>60)
[2021-02-10 09:34] LABS: Albumin Level 4.5 g/dl (3.5-5.0); Albumin/Globulin Ratio 1.5 (1.1-1.8); Alkaline Phosphatase 117 U/L (38-126); Anion Gap 11.5 mEq/L (5-15); Bilirubin,Total 0.5 mg/dl (0.2-1.3); Calcium 9.2 mg/dl (8.4-10.2); Carbon Dioxide 27 mmol/L (22.0-30.0); Glucose 112 mg/dl (74-100); Total Protein,Serum 7.5 g/dl (6.3-8.2)
--- NOTE | 2021-02-10 10:08 | PC.NURSE ---
pt returned from rad
[2021-02-10 10:30] VITALS: BP 168/90; PULSE 92; O2SAT 96
[2021-02-10 11:26] VITALS: BP 133/92; PULSE 53; RESP 18; TEMP 36.9; O2SAT 96
== END 2021-02-10 11:37 | disposition home or self-care (01) ==
PROVIDERS: Emergency Provider Emergency Medicine; PCP Family Medicine
DX: S16.1XXA Strain of muscle, fascia and tendon at neck level, initial encounter (principal); S39.012A Strain of muscle, fascia and tendon of lower back, initial encounter; S80.11XA Contusion of right lower leg, initial encounter; W11.XXXA Fall on and from ladder, initial encounter
CPT/HCPCS: 70450; 71045; 72125; 72128; 72131; 72170; 73552; 73590; 73630; 80053; 85025; 96374; 99282

== ENCOUNTER 2021-02-11 19:59 | Emergency (ER) | payer OTHER, SELFPAY ==
[2021-02-11 20:00] VITALS: BP 164/95; PULSE 126; RESP 21; TEMP 37; O2SAT 98; BMI 31.6
--- NOTE | 2021-02-11 20:15 | HMH.EDUTC ---
[facility] [place] Clinical Impression: Abdominal pain Qualifiers: Abdominal location: unspecified location Qualified Code(s): R10.9 - Unspecified abdominal pain Disposition: Still a Patient Condition on Discharge: Fair Referrals: Flora Key MD [Primary Care Provider] - Time of Disposition: 20:28 Medical Decision Making - Martín Inquiry Pt receiving controlled substance: No Martín was queried for this patient: No Vital Signs: 02/11/21 20:00 02/11/21 21:00 Temperature 98.6 F Temperature Source Oral Pulse Rate 117 H Pulse Rate [Right Brachial] 126 H Respiratory Rate 21 Blood Pressure 143/96 H Blood Pressure [Right Arm] 164/95 H Blood Pressure Mean [Right Arm] 118 Blood Pressure Source [Right Arm] Automatic Cuff Blood Pressure Position [Right Arm] Sitting 02 Sat by Pulse Oximetry 98 98 Oxygen Delivery Method Room Air Medical Decision Narrative: Patient complaining of abdominal pain that started after falling off ladder yesterday in his left side of abdomen State that he does have history of Hiatal Hernia States that the pain is bad at times and makes him sick at his stomach and he will vomit States that then vomiting makes pain worse States that he has not had any bloody BM and last BM this morning Denies vomiting blood Rates abdominal pain a 8/ Due to patient having abdominal pain discussed with patient and recommended transfer to the ED for further work up and evaluation States that he has also been having pain in his right knee when he walks on it Called ED and spoke with staff Patient moved to room 10 without difficulty [facility] [place] - General Stated complaint: right leg pain, vomiting, stomach pain Time Seen by Provider: 02/11/21 20:16 Mode of Arrival: Ambulatory Source of Information: Patient Limitations: No Limitations Description of Symptoms (Recalled from Triage Doc. by RN): PATIENT C/O RIGHT LEG PAIN, ABDOMINAL PAIN, AND VOMITING SINCE YESTERDAY. HE WAS SEEN IN ER AFTER FALLING OFF OF LADDER YESTERDAY. HE STATES HE HAS BEEN HAVING ABDOMINAL PAIN AND VOMITING SINCE FALLING. HEENT Symptoms (Recalled from RN notes): No Resp Symptoms (Recalled from RN notes): No Skin Symptoms (Recalled from RN notes): No MS Symptoms (Recalled from RN notes): No Functional Status (Recalled from RN notes): WNL - History of Present Illness Provider Complaint: Patient states that he fell off ladder yesterday and was in the ER and had multiple scans and xrays done, State that since the fall he has started having severe abdominal pain on the left upper and lower abdomen and states pain so bad it makes him vomit States that abdomen is tender and hurts when he touches it States that he has a history of Hiatal Hernia and has surgery scheduled and not sure if that is what is causing his pain or not States that pain is 8/10 and hurts worse with movement States that he is also having pain in his right knee when he stands and walks on it - Related Data Home Medications Medication Instructions Recorded Confirmed Dextroamphetamine/Amphetamine 30 mg PO DAILY 12/01/17 12/08/18 [Adderall Xr 30 mg Capsule] Omeprazole [Omeprazole 20mg 20 mg PO DAILY 12/01/17 12/08/18 Capsule] Hydrocodone/Acetaminophen [Lortab 15 ml PO Q4HP PRN 03/11/18 12/08/18 7.5/325mg 15mL UDC] ALPRAZolam [Xanax 2mg Tab] 2 mg PO TID 12/08/18 12/08/18 Previous Rx's Medication Instructions Recorded Ibuprofen [Ibuprofen 800mg 800 mg PO Q8HP PRN #15 tab 02/10/21 Tablet] Allergies Allergy/AdvReac Type Severity Reaction Status Date / Time PCN (PENICILLIN) Allergy Intermediate I-RASH Uncoded 07/22/17 14:47 - Worker's Comp Is this a Worker's Comp case?: No [facility] History - Hepatitis A Screen Drug use history?: No High risk sexual behaviors?: No History of sexually transmitted infection?: No Currently employed?: No Childcare worker?: No Do you have indoor plumbing?: Yes Do you have electricity?: Yes Attestation [facility]
--- NOTE | 2021-02-11 20:28 | PC.NURSE ---
PATIENT SENT TO ER PER Arcenio MORENO APRN FOR FURTHER EVALUATION. REPORT GIVEN BY Arcenio MORENO APRN TO ANGELY BULLOCK
[2021-02-11 21:00] VITALS: BP 143/96; PULSE 117; O2SAT 98
--- NOTE | 2021-02-11 22:01 | CT_ITS ---
PROCEDURE INFORMATION: Exam: CT Abdomen And Pelvis With Contrast Exam date and time: 02/11/21 10:01 PM Age: 30 years old Clinical indication: Abdominal pain; Localized; Prior surgery; Surgery date: 6+ months; Surgery type: Hernia; Patient HX: Left sided pain from chest to top of pelvis, fall off of ladder yesterday; Additional info: Post trauma pain with left chest wall pain TECHNIQUE: Imaging protocol: Computed tomography of the abdomen and pelvis with contrast. Radiation optimization: All CT scans at this facility use at least one of these dose optimization techniques: automated exposure control; mA and/or kV adjustment per patient size (includes targeted exams where dose is matched to clinical indication); or iterative reconstruction. Contrast material: ISOVUE; Contrast volume: 75 ml; Contrast route: IV; COMPARISON: CT ABDOMEN PELVIS W CON 11/12/20 08:32 PM FINDINGS: Tubes, catheters and devices: None noted. Lungs: Right middle lobe subsegmental atelectasis. Heart: No significant coronary calcifications. No cardiomegaly. No significant pericardial effusion. Liver: Normal. No mass. Gallbladder and bile ducts: Normal. No calcified stones. No ductal dilation. Pancreas: Normal. No ductal dilation. Spleen: Normal. No splenomegaly. Adrenal glands: Normal. No mass. Kidneys and ureters: Normal. No hydronephrosis. Stomach and bowel: Previous Naz. No obstruction. No mucosal thickening. Appendix: No evidence of appendicitis. Intraperitoneal space: Unremarkable. No free air. No significant fluid collection. Retroperitoneal space: No significant retroperitoneal inflammatory changes are noted. Vasculature: Unremarkable. No abdominal aortic aneurysm. Lymph nodes: Unremarkable. No enlarged lymph nodes. Urinary bladder: Unremarkable as visualized. Reproductive: Unremarkable as visualized. Bones/joints: Unremarkable. No acute fracture. Soft tissues: Unremarkable. IMPRESSION: Right middle lobe subsegmental atelectasis. (series [id number], image 24)
--- NOTE | 2021-02-11 22:01 | CT_ITS ---
PROCEDURE INFORMATION: Exam: CT Chest With Contrast; Diagnostic Exam date and time: 02/11/21 10:01 PM Age: 30 years old Clinical indication: Chest wall pain; Patient HX: Left sided pain from chest to top of pelvis, fall off ladder yesterday; Additional info: Post trauma pain with left chest wall pain TECHNIQUE: Imaging protocol: Diagnostic computed tomography of the chest with contrast. 3D rendering (Not supervised by radiologist): MIP and/or 3D reconstructed images were created by the technologist. Radiation optimization: All CT scans at this facility use at least one of these dose optimization techniques: automated exposure control; mA and/or kV adjustment per patient size (includes targeted exams where dose is matched to clinical indication); or iterative reconstruction. Contrast material: ISOVUE; Contrast volume: 75 ml; Contrast route: IV; COMPARISON: CR XR CHEST AP 02/11/21 10:13 PM FINDINGS: Lungs: Subsegmental atelectasis right middle lobe. No consolidation. No masses. Pleural spaces: Unremarkable. No pneumothorax. No pleural effusion. Heart: Unremarkable. No cardiomegaly. No pericardial effusion. Aorta: Unremarkable. No aortic aneurysm. Lymph nodes: Unremarkable. No enlarged lymph nodes. Bones/joints: Unremarkable. No acute fracture. Soft tissues: Unremarkable. IMPRESSION: No acute findings.
[2021-02-11 22:05] VITALS: BP 132/98; PULSE 119; RESP 26; O2SAT 99; BMI 34.2
[2021-02-11 22:12] LABS: Basophils # 0.1 K/mm3 (0-0.2); Basophils % 1.2 % (0.1-2.0); Eosinophils # 0.1 K/mm3 (0.0-0.4); Eosinophils % 0.7 % (0.1-12.0); Hematocrit 43.7 % (42.0-52.0); Hemoglobin 15.5 g/dL (14.1-18.0); Lymphocytes % 33.7 % (10-50); Mean Corpuscular HGB Conc 35.4 g/dL (31.8-35.4); Mean Corpuscular Hemoglobin 31.1 pg (27.0-31.2); Mean Platelet Volume 8.8 fl (7.4-10.4); Monocytes # 0.5 K/mm3 (0.1-1.0); Monocytes % 5.8 % (1.7-9.3); Neutrophils # 5.3 K/mm3 (1.8-7.8); Neutrophils % 58.5 % (37.0-80.0); Platelet Count 286 K/mm3 (142-424); Red Blood Count 4.97 M/mm3 (4.60-6.20); Red Cell Distribution Width 13.1 % (11.5-17.5)
--- NOTE | 2021-02-11 22:15 | XR_ITS ---
PROCEDURE INFORMATION: Exam: XR Chest Exam date and time: 02/11/21 10:15 PM Age: 30 years old Clinical indication: Injury or trauma; Blunt trauma (contusions or hematomas); Patient HX: Fall yesterday off ladder, left sided pain TECHNIQUE: Imaging protocol: XR of the chest. Views: 1 view. COMPARISON: CR XR CHEST PORTABLE 02/10/21 09:18 AM FINDINGS: Lungs: Unremarkable. No consolidation. Pleural spaces: Unremarkable. No pleural effusion. No pneumothorax. Heart/Mediastinum: Hiatal hernia. Bones/joints: Unremarkable. IMPRESSION: Hiatal hernia.
[2021-02-11 22:27] LABS: Alanine Aminotransferase 38 U/L (12-78); Albumin Level 4.4 g/dl (3.5-5.0); Albumin/Globulin Ratio 1.6 (1.1-1.8); Alkaline Phosphatase 100 U/L (38-126); Amylase 80 U/L (30-110); Anion Gap 13.7 mEq/L (5-15); Aspartate Amino Transferase 30 U/L (17-59); Bilirubin,Total 0.4 mg/dl (0.2-1.3); Blood Urea Nitrogen 13 mg/dl (9-20); Calcium 9.2 mg/dl (8.4-10.2); Carbon Dioxide 24 mmol/L (22.0-30.0); Chloride 106 mmol/L (98-107); Creatinine Clearance Estimated 197 mL/min (50-200); Estimated Glomerular Filt Rate 98 ml/min (>60); GFR (African American) 118 ML/MIN (>60); Globulin 2.8 g/dL (1.3-3.2); Glucose 153 mg/dl (74-100); Lipase 134 U/L (23-300); Potassium 3.7 mmoL/L (3.5-5.1); Sodium 140 mmol/L (136-145); Total Protein,Serum 7.2 g/dl (6.3-8.2)
[2021-02-11 22:32] LABS: C-Reactive Protein 1.8 mg/L (0-4)
[2021-02-11 22:41] LABS: Erythrocyte Sedimentation Rate 7 mm/hr (0-15)
[2021-02-11 22:45] LABS: Procalcitonin 0.052 ng/mL (0.0-2.0)
--- NOTE | 2021-02-11 23:50 | HMH.EDFALL ---
ED Disposition Clinical Impression: Abdominal pain Qualifiers: Abdominal location: left upper quadrant Qualified Code(s): R10.12 - Left upper quadrant pain Blunt abdominal trauma Qualifiers: Encounter type: initial encounter Qualified Code(s): S39.91XA - Unspecified injury of abdomen, initial encounter Chest wall contusion Qualifiers: Encounter type: initial encounter Laterality: left Qualified Code(s): S20.212A - Contusion of left front wall of thorax, initial encounter Disposition: Home, Self-Care Condition on Discharge: Good Instructions: DI for Acute Pain -- Adult Additional Instructions: call pcp in am for follow up Prescriptions: ondansetron HCL [Zofran 4mg Tab] 4 mg PO TID #21 tab [facility]: [facility] Referrals: Flora Key MD [Primary Care Provider] - - Critical Care Critical Care Time: No Attestation: On 02/11/21, the high probability of a clinically significant, sudden or life threatening deterioration of the following system(s) required my full and direct attention, intervention and personal management. The time I documented below is in addition to time spent performing reported procedures but includes the following listed in this critical care notation. Medical Decision Making - Medical Records Medical records reviewed: Yes: I reviewed the patient's medical records. - Martín Inquiry Pt receiving controlled substance: No Vital Signs: 02/11/21 20:00 02/11/21 21:00 02/11/21 22:05 Temperature 98.6 F Temperature Source Oral Pulse Rate 117 H Pulse Rate [Right Brachial] 126 H 119 H Respiratory Rate 21 26 H Blood Pressure 143/96 H Blood Pressure [Right Arm] 164/95 H 132/98 H Blood Pressure Mean [Right Arm] 118 109 Blood Pressure Source [Right Arm] Automatic Cuff Automatic Cuff Blood Pressure Position [Right Arm] Sitting Sitting 02 Sat by Pulse Oximetry 98 98 99 Oxygen Delivery Method Room Air Room Air - Lab Data Lab results reviewed: Yes: I reviewed the patient's lab results. Lab Results 02/11/21 20:56: WBC 9.0, RBC 4.97, Hgb 15.5, Hct 43.7, MCV 88.0, MCH 31.1, MCHC 35.4, RDW 13.1, Plt Count 286, MPV 8.8, Neut % (Auto) 58.5, Lymph % (Auto) 33.7, [place] % (Auto) 5.8, Eos % (Auto) 0.7, Baso % (Auto) 1.2, Neut # (Auto) 5.3, Lymph # (Auto) 3.0, [place] # (Auto) 0.5, Eos # (Auto) 0.1, Baso # (Auto) 0.1, ESR 7 02/11/21 20:56: Sodium 140, Potassium 3.7, Chloride 106, Carbon Dioxide 24, Anion Gap 13.7, BUN 13 D, Creatinine 0.90, Estimated Creat Clear 197, Estimated GFR 98, Est GFR ( Amer) 118, Glucose 153 H, Calcium 9.2, Total Bilirubin 0.4, AST 30, ALT 38, Alkaline Phosphatase 100, C-Reactive Protein 1.8, Total Protein 7.2, Albumin 4.4, Globulin 2.8, Albumin/Globulin Ratio 1.6, Amylase 80, Lipase 134, Procalcitonin 0.052 Result diagrams: 02/11/21 20:56 02/11/21 20:56 Orders (Tests/Meds): ED MEDICATIONS Generic Name Dose Route Start Last Admin Trade Name Freq PRN Reason Stop Dose Admin Sodium Chloride 1,000 mls @ 999 mls/hr 02/11/21 22:15 02/11/21 22:07 Sod Chlor 0.9% 1000ml Bag IV 02/11/21 23:15 999 mls/hr .Q1H1M AJ Administration Discontinued Medications Generic Name Dose Route Start Last Admin Trade Name Freq PRN Reason Stop Dose Admin Iopamidol 75 ml 02/11/21 22:42 02/11/21 22:42 Iopamidol-370 (76%);100ml Bottle IV 02/11/21 22:43 75 ml ONCE ONE Administration Ketorolac Tromethamine 30 mg 02/11/21 22:01 02/11/21 22:07 Ketorolac 30mg/Ml Vial IV 02/11/21 22:02 30 mg ONCE ONE Administration Methylprednisolone Sodium Succinate 125 mg 02/11/21 22:01 02/11/21 22:07 Methylprednisolone Sod Succ 125mg Vial IV 02/11/21 22:02 125 mg ONCE ONE Administration Morphine Sulfate 4 mg 02/11/21 22:18 02/11/21 22:19 Morphine 4mg/Ml Syringe IV 02/11/21 22:19 4 mg ONCE ONE Administration Ondansetron HCl 4 mg 02/11/21 22:01 02/11/21 22:07 Ondansetron 4mg/2ml Vial IV 0
[2021-02-12 00:30] VITALS: BP 150/87; PULSE 98; RESP 20; TEMP 37; O2SAT 99
== END 2021-02-12 00:35 | disposition home or self-care (01) ==
LOC: UTC 20:28 → ER 20:29
PROVIDERS: Emergency Provider Emergency Medicine; PCP Family Medicine
DX: S39.91XA Unspecified injury of abdomen, initial encounter (principal); S20.212A Contusion of left front wall of thorax, initial encounter
CPT/HCPCS: 71045; 71260; 74177; 80053; 82150; 83690; 84145; 85025; 85651; 86140; 96365; 96375; 99283; J2405; Q9967

== ENCOUNTER 2021-05-06 13:32 | Emergency (ER) | payer OTHER, SELFPAY ==
[2021-05-06 14:00] VITALS: BP 141/96; PULSE 91; RESP 19; TEMP 37.1; O2SAT 100; BMI 31.6
--- NOTE | 2021-05-06 15:10 | HMH.EDUTC ---
[facility] [place] Disposition Clinical Impression: Pain, dental, Dental infection Disposition: Home, Self-Care Condition on Discharge: Good Instructions: DI for Chronic Pain -- Adult, DI for Dental Pain, Cephalexin Additional Instructions: Take medication as prescribed for pain and infection Return if needed Call Dentist in the morning for appointment and further treatment Straight to ER if any life threatening symptoms Prescriptions: Ibuprofen [Ibuprofen 800mg Tablet] 800 mg PO Q8HP PRN #20 tab PRN Reason: Moderate Pain Transmission Status: Pending to [facility] # cephALEXin [cephALEXin 500mg capsule*] 500 mg PO Q8H 7 Days #21 cap Transmission Status: Pending to [facility] # Referrals: Flora Key MD [Primary Care Provider] - As needed Time of Disposition: 15:23 Medical Decision Making - Martín Inquiry Pt receiving controlled substance: No Martín was queried for this patient: No Vital Signs: 05/06/21 14:00 Temperature 98.8 F Temperature Source Oral Pulse Rate [Right Brachial] 91 H Respiratory Rate 19 Blood Pressure [Right Arm] 141/96 H Blood Pressure Mean [Right Arm] 111 Blood Pressure Source [Right Arm] Automatic Cuff Blood Pressure Position [Right Arm] Sitting 02 Sat by Pulse Oximetry 100 Oxygen Delivery Method Room Air Medical Decision Narrative: Patient state that he is allergic to PCN but has taken Cephalosporins in the past without reactions or complications Patient states that he took 800mg of Motrin for pain just prior to arrival [facility] [place] HPI - General Stated complaint: dental pain Time Seen by Provider: 05/06/21 15:11 Mode of Arrival: Ambulatory Source of Information: Patient Limitations: No Limitations Description of Symptoms (Recalled from Triage Doc. by RN): PATIENT C/O PAIN AFTER HAVING TOOTH PULLED ON FRIDAY HEENT Symptoms (Recalled from RN notes): Yes Resp Symptoms (Recalled from RN notes): No Skin Symptoms (Recalled from RN notes): No MS Symptoms (Recalled from RN notes): No Functional Status (Recalled from RN notes): WNL - History of Present Illness Provider Complaint: Patient states that he had a tooth pulled a few days ago States that he they give him some pain medication for a few days and told him to call back if he needed more but he ran out over the weekend and they are closed States that he feels like he is getting an infection in the tooth due to they had a hard time getting it out - Related Data Home Medications Medication Instructions Recorded Confirmed Dextroamphetamine/Amphetamine 30 mg PO DAILY 12/01/17 12/08/18 [Adderall Xr 30 mg Capsule] Omeprazole [Omeprazole 20mg 20 mg PO DAILY 12/01/17 12/08/18 Capsule] Hydrocodone/Acetaminophen [Lortab 15 ml PO Q4HP PRN 03/11/18 12/08/18 7.5/325mg 15mL UDC] ALPRAZolam [Xanax 2mg Tab] 2 mg PO TID 12/08/18 12/08/18 Previous Rx's Medication Instructions Recorded Ibuprofen [Ibuprofen 800mg 800 mg PO Q8HP PRN #15 tab 02/10/21 Tablet] ondansetron HCL [Zofran 4mg Tab] 4 mg PO TID #21 tab 02/11/21 Ibuprofen [Ibuprofen 800mg 800 mg PO Q8HP PRN #20 tab 05/06/21 Tablet] cephALEXin [cephALEXin 500mg 500 mg PO Q8H 7 Days #21 cap 05/06/21 capsule*] Allergies Allergy/AdvReac Type Severity Reaction Status Date / Time Penicillins Allergy Verified 05/06/21 14:11 - Worker's Comp Is this a Worker's Comp case?: No [facility] History - Hepatitis A Screen Drug use history?: No High risk sexual behaviors?: No History of sexually transmitted infection?: No Currently employed?: No Childcare worker?: No Do you have indoor plumbing?: Yes Do you have electricity?: Yes Attestation statement:: This patient has been screened for Hepatitis A risk factors. I have reviewed the patient's past medical history: Yes Medical History: Denies:: Cancer, Diabetes Mellitus Type 1, Diabetes Mellitus Type 2, MRSA Laterality Cases: Bilateral: Tonsillectomy Amputation: No Fractures:
[2021-05-06 15:30] VITALS: BP 141/96; PULSE 91; RESP 19; TEMP 37.1; O2SAT 100
== END 2021-05-06 15:33 | disposition home or self-care (01) ==
PROVIDERS: Emergency Provider Nurse Practitioner; PCP Family Medicine
DX: K04.7 Periapical abscess without sinus (principal)
CPT/HCPCS: 99202; G0463

== ENCOUNTER → 2021-05-16 13:19 | Outpatient (CLI) | payer OTHER, SELFPAY | PROVIDERS: PCP Family Medicine; Visit Provider Nurse Practitioner | DX: Z20.822 Contact with and (suspected) exposure to COVID-19 (principal); U07.1 COVID-19 | CPT/HCPCS: C9803; U0003; U0005 ==

== ENCOUNTER 2021-06-02 11:12 | Emergency (ER) | payer OTHER, SELFPAY ==
--- NOTE | 2021-06-02 11:08 | ECG_ITS ---
APPROVED REPORT Exam: Resting ECG HR:123 bpm ECG Measurements Heart Rate 123 AXES LA 122 P 22 QRSd 82 QRS 71 QT 318 T 23 QTc 455 Conclusion Sinus tachycardia Cannot rule out Anterior infarct, age undetermined Abnormal ECG Electronically signed by : Boris Garcia MD 06/03/2021 09:04:26
[2021-06-02 11:12] VITALS: BP 145/99; PULSE 122; RESP 18; O2SAT 100; BMI 28.7
--- NOTE | 2021-06-02 11:27 | XR_ITS ---
PROCEDURE INFORMATION: Exam: XR Chest Exam date and time: 06/02/2021 11:27 AM Age: 31 years old Clinical indication: Pain; Chest pressure; Additional info: Left upper chest pain TECHNIQUE: Imaging protocol: XR of the chest. Views: 1 view. COMPARISON: CT CHEST W CON 02/11/2021 10:26 PM FINDINGS: Lungs: Unremarkable. No consolidation. Pleural spaces: Unremarkable. No pleural effusion. No pneumothorax. Heart/Mediastinum: Unremarkable. No cardiomegaly. Bones/joints: Unremarkable. IMPRESSION: No acute findings.
[2021-06-02 11:28] VITALS: BMI 30.3
--- NOTE | 2021-06-02 11:30 | PC.NURSE ---
Spoke with RAD to get pt for chest x ray
[2021-06-02 11:38] LABS: Basophils # 0.1 K/mm3 (0-0.2); Basophils % 0.9 % (0.1-2.0); Eosinophils # 0.1 K/mm3 (0.0-0.4); Eosinophils % 0.6 % (0.1-12.0); Hemoglobin 15.6 g/dL (14.1-18.0); Lymphocytes # 2.4 K/mm3 (0.7-4.5); Lymphocytes % 29.2 % (10-50); Mean Corpuscular HGB Conc 33.9 g/dL (31.8-35.4); Mean Corpuscular Hemoglobin 31.7 pg (27.0-31.2); Mean Corpuscular Volume 93.4 fl (80-94); Mean Platelet Volume 8.8 fl (7.4-10.4); Monocytes # 0.7 K/mm3 (0.1-1.0); Monocytes % 8.5 % (1.7-9.3); Neutrophils % 60.8 % (37.0-80.0); Platelet Count 350 K/mm3 (142-424); Red Blood Count 4.93 M/mm3 (4.60-6.20); Red Cell Distribution Width 14.1 % (11.5-17.5); White Blood Count 8.2 K/mm3 (4.8-10.8)
[2021-06-02 11:44] LABS: Chloride 106 mmol/L (98-107); Potassium 3.4 mmoL/L (3.5-5.1); Sodium 142 mmol/L (136-145)
[2021-06-02 11:47] LABS: Alanine Aminotransferase 34 U/L (12-78); Albumin Level 4.5 g/dl (3.5-5.0); Albumin/Globulin Ratio 1.6 (1.1-1.8); Alkaline Phosphatase 116 U/L (38-126); Anion Gap 12.4 mEq/L (5-15); Aspartate Amino Transferase 26 U/L (17-59); Bilirubin,Total 0.4 mg/dl (0.2-1.3); Blood Urea Nitrogen 12 mg/dl (9-20); Calcium 9.5 mg/dl (8.4-10.2); Carbon Dioxide 27 mmol/L (22.0-30.0); Creatinine Clearance Estimated 194 mL/min (50-200); Estimated Glomerular Filt Rate 111 ml/min (>60); GFR (African American) 135 ML/MIN (>60); Globulin 2.9 g/dL (1.3-3.2); Glucose 110 mg/dl (74-100); Total Protein,Serum 7.4 g/dl (6.3-8.2)
[2021-06-02 11:53] LABS: D-Dimer 0.44 ug/mL (0.0-0.5)
[2021-06-02 12:01] LABS: Troponin I < 0.01 ng/ml (0.00-0.034)
--- NOTE | 2021-06-02 12:06 | HMH.EDCP ---
ED Disposition Clinical Impression: Atypical chest pain Disposition: Home, Self-Care Condition on Discharge: Good Additional Instructions: You were evaluated emergency department today for chest pain, and there is no need for further emergent evaluation at this time. Exact cause of symptoms unclear, take ibuprofen, acetaminophen as directed for pain control, and follow-up with your primary care physician next 1 to 2 days for monitoring of any persistent symptoms and coordination of ongoing care needs. Return to the emergency department hesitation with any new or worsening symptoms. Referrals: Provider,Referral, [Primary Care Provider] - - Critical Care Critical Care Time: No Attestation: On 06/02/21, the high probability of a clinically significant, sudden or life threatening deterioration of the following system(s) required my full and direct attention, intervention and personal management. The time I documented below is in addition to time spent performing reported procedures but includes the following listed in this critical care notation. Medical Decision Making - Martín Inquiry Pt receiving controlled substance: Yes Martín was queried for this patient: No Risks and benefits of using a controlled substance: were discussed with pt by me Vital Signs: 06/02/21 11:12 06/02/21 13:03 06/02/21 13:45 Pulse Rate 111 H 125 H Pulse Rate [Left Radial] 122 H Respiratory Rate 18 25 H 27 H Blood Pressure 129/86 134/95 H Blood Pressure [Right Arm] 145/99 H Blood Pressure Mean [Right Arm] 114 02 Sat by Pulse Oximetry 100 97 95 Oxygen Delivery Method Room Air - Lab Data Lab Results 06/02/21 11:24: D-Dimer 0.44 06/02/21 11:24: Troponin I < 0.01 06/02/21 11:24: WBC 8.2, RBC 4.93, Hgb 15.6, Hct 46.0, MCV 93.4, MCH 31.7 H, MCHC 33.9, RDW 14.1, Plt Count 350, MPV 8.8, Neut % (Auto) 60.8, Lymph % (Auto) 29.2, [place] % (Auto) 8.5, Eos % (Auto) 0.6, Baso % (Auto) 0.9, Neut # (Auto) 5.0, Lymph # (Auto) 2.4, [place] # (Auto) 0.7, Eos # (Auto) 0.1, Baso # (Auto) 0.1 06/02/21 11:24: Sodium 142, Potassium 3.4 L, Chloride 106, Carbon Dioxide 27, Anion Gap 12.4, BUN 12, Creatinine 0.80, Estimated Creat Clear 194, Estimated GFR 111, Est GFR ( Amer) 135, Glucose 110 H, Calcium 9.5, Total Bilirubin 0.4, AST 26, ALT 34, Alkaline Phosphatase 116, Total Protein 7.4, Albumin 4.5, Globulin 2.9, Albumin/Globulin Ratio 1.6 Result diagrams: 06/02/21 11:24 06/02/21 11:24 Orders (Tests/Meds): ED MEDICATIONS Discontinued Medications Generic Name Dose Route Start Last Admin Trade Name Freq PRN Reason Stop Dose Admin Aspirin 324 mg 06/02/21 11:32 06/02/21 12:20 Aspirin 81mg Chewable Tablet PO 06/02/21 11:33 324 mg ONCE ONE Administration Belladonna Alkaloids 60 ml 06/02/21 12:33 06/02/21 13:32 Gi Cocktail 60ml Udc PO 06/02/21 12:34 60 ml ONCE ONE Administration Diazepam 5 mg 06/02/21 11:29 06/02/21 12:20 Diazepam 5mg Tablet PO 06/02/21 11:30 5 mg ONCE ONE Administration Famotidine 40 mg 06/02/21 12:33 06/02/21 13:32 Famotidine 20mg Tablet PO 06/02/21 12:34 40 mg ONCE ONE Administration Sodium Chloride 1,000 mls @ 999 mls/hr 06/02/21 13:45 06/02/21 13:42 Sod Chlor 0.9% 1000ml Bag IV 06/02/21 14:45 999 mls/hr .Q1H1M AJ Administration Iopamidol 75 ml 06/02/21 13:19 06/02/21 13:20 Iopamidol-370 (76%);100ml Bottle IV 06/02/21 13:20 75 ml ONCE ONE Administration Ketorolac Tromethamine 30 mg 06/02/21 13:30 06/02/21 13:30 Ketorolac 30mg/Ml Vial IV 06/02/21 13:31 30 mg ONCE ONE Administration Morphine Sulfate 4 mg 06/02/21 13:30 06/02/21 13:30 Morphine 4mg/Ml Syringe IV 06/02/21 13:31 4 mg ONCE ONE Administration Ondansetron HCl 4 mg 06/02/21 11:52 06/02/21 11:56 Ondansetron 4mg/2ml Vial IV 06/02/21 11:53 4 mg ONCE ONE Administration Oxycodone/Acetaminophen 1 each 06/02/21 14:28 06/02/21 14:40 Oxycodone 5mg W/Apap 32
--- NOTE | 2021-06-02 12:48 | CT_ITS ---
PROCEDURE INFORMATION: Exam: CT Abdomen And Pelvis With Contrast Exam date and time: 06/02/2021 12:48 PM Age: 31 years old Clinical indication: Abdominal pain; Acute; Prior surgery; Surgery date: 6+ months; Surgery type: Hernia repair; Additional info: Acute diffuse abdominal pain TECHNIQUE: Imaging protocol: Computed tomography of the abdomen and pelvis with contrast. Radiation optimization: All CT scans at this facility use at least one of these dose optimization techniques: automated exposure control; mA and/or kV adjustment per patient size (includes targeted exams where dose is matched to clinical indication); or iterative reconstruction. Contrast material: ISOVUE; Contrast volume: 75 ml; Contrast route: IV; COMPARISON: CT ABDOMEN PELVIS W CON 02/11/2021 10:26 PM FINDINGS: Liver: Normal. No mass. Gallbladder and bile ducts: Normal. No calcified stones. No ductal dilation. Pancreas: Normal. No ductal dilation. Spleen: Normal. No splenomegaly. Adrenal glands: Normal. No mass. Kidneys and ureters: Normal. No hydronephrosis. Stomach and bowel: Stable Juan M wrap at the gastroesophageal junction. No obstruction. No mucosal thickening Appendix: Normal appendix Intraperitoneal space: Surgical clips in the left upper quadrant of the abdomen Vasculature: Unremarkable. No abdominal aortic aneurysm. Lymph nodes: Unremarkable. No enlarged lymph nodes. Urinary bladder: Unremarkable as visualized. Reproductive: Unremarkable as visualized. Bones/joints: Compression fractures of unknown age in the thoracic spine Soft tissues: Unremarkable. IMPRESSION: No acute process
[2021-06-02 13:03] VITALS: BP 129/86; PULSE 111; RESP 25; O2SAT 97
--- NOTE | 2021-06-02 13:07 | PC.NURSE ---
Pt to rad.
--- NOTE | 2021-06-02 13:26 | PC.NURSE ---
Pt returned from rad. Pt is squirming around in bed.
[2021-06-02 13:45] VITALS: BP 134/95; PULSE 125; RESP 27; O2SAT 95
[2021-06-02 15:12] VITALS: BP 129/86; PULSE 113; RESP 14; TEMP 36.8; O2SAT 96
[2021-06-02 15:34] LABS: Troponin I < 0.01 ng/ml (0.00-0.034)
== END 2021-06-02 15:12 | disposition home or self-care (01) ==
PROVIDERS: Emergency Provider Student in an Organized Health Care Education/Training Program
DX: R07.89 Other chest pain (principal); F41.9 Anxiety disorder, unspecified; Z88.0 Allergy status to penicillin
CPT/HCPCS: 36415; 71045; 74177; 80053; 84484; 85025; 85378; 93005; 96365; 99283; J2405; Q9967

== ENCOUNTER 2021-07-11 20:03 | Emergency (ER) | payer OTHER, SELFPAY ==
--- NOTE | 2021-07-11 19:54 | ECG_ITS ---
APPROVED REPORT Exam: Resting ECG HR:116 bpm ECG Measurements Heart Rate 116 AXES VT 124 P 21 QRSd 80 QRS 47 QT 312 T 23 QTc 433 Conclusion Sinus tachycardia Otherwise normal ECG Electronically signed by : Boris Garcia MD 07/14/2021 08:48:05
[2021-07-11 20:03] VITALS: BP 165/83; PULSE 122; RESP 22; TEMP 36.6; O2SAT 97; BMI 33.0
--- NOTE | 2021-07-11 20:05 | XR_ITS ---
PROCEDURE INFORMATION: Exam: XR Chest Exam date and time: 07/11/2021 8:05 PM Age: 31 years old Clinical indication: Pain; Chest pressure; Additional info: Chest tightness TECHNIQUE: Imaging protocol: XR of the chest. Views: 2 views. COMPARISON: CR XR CHEST PORTABLE 06/02/2021 11:42 AM FINDINGS: Lungs: Unremarkable. No consolidation. Pleural spaces: Unremarkable. No pleural effusion. No pneumothorax. Heart/Mediastinum: Hiatal hernia. No cardiomegaly. Bones/joints: Unremarkable. IMPRESSION: No acute findings.
--- NOTE | 2021-07-11 20:18 | CT_ITS ---
PROCEDURE INFORMATION: Exam: CTA Chest With Contrast Exam date and time: 07/11/2021 8:18 PM Age: 31 years old Clinical indication: Pain; Chest pressure; Additional info: Chest pain TECHNIQUE: Imaging protocol: Computed tomographic angiography of the chest with contrast. 3D rendering (Not supervised by radiologist): MIP and/or 3D reconstructed images were created by the technologist. Radiation optimization: All CT scans at this facility use at least one of these dose optimization techniques: automated exposure control; mA and/or kV adjustment per patient size (includes targeted exams where dose is matched to clinical indication); or iterative reconstruction. Contrast material: ISOVUE; Contrast volume: 70 ml; Contrast route: INTRAVENOUS (IV); COMPARISON: CT CHEST W CON 02/11/2021 10:26 PM FINDINGS: Pulmonary arteries: Normal. No pulmonary emboli. Aorta: No aortic aneurysm. No aortic dissection. Lungs: No consolidation. No masses. Pleural spaces: No pneumothorax. No pleural effusion. Heart: No cardiomegaly. No pericardial effusion. Lymph nodes: No enlarged lymph nodes. Stomach and bowel: Status post Naz fundoplication with moderate hiatal hernia. Bones/joints: No acute fracture. Soft tissues: No significant swelling. IMPRESSION: No acute findings.
[2021-07-11 20:24] LABS: Basophils # 0.1 K/mm3 (0-0.2); Basophils % 0.8 % (0.1-2.0); Eosinophils % 0.3 % (0.1-12.0); Hematocrit 46.1 % (42.0-52.0); Hemoglobin 16.3 g/dL (14.1-18.0); Lymphocytes # 2.4 K/mm3 (0.7-4.5); Lymphocytes % 29.7 % (10-50); Mean Corpuscular HGB Conc 35.3 g/dL (31.8-35.4); Mean Corpuscular Hemoglobin 31.7 pg (27.0-31.2); Mean Corpuscular Volume 89.7 fl (80-94); Mean Platelet Volume 8.5 fl (7.4-10.4); Monocytes # 0.5 K/mm3 (0.1-1.0); Monocytes % 6.4 % (1.7-9.3); Neutrophils % 62.8 % (37.0-80.0); Platelet Count 273 K/mm3 (142-424); Red Blood Count 5.14 M/mm3 (4.60-6.20); Red Cell Distribution Width 13.4 % (11.5-17.5)
[2021-07-11 20:29] LABS: Alanine Aminotransferase 42 U/L (12-78); Albumin Level 4.7 g/dl (3.5-5.0); Alkaline Phosphatase 110 U/L (38-126); Anion Gap 8.4 mEq/L (5-15); Aspartate Amino Transferase 32 U/L (17-59); Bilirubin,Direct 0.2 mg/dl (0.0-0.4); Bilirubin,Indirect 0.2 mg/dL (0.0-0.9); Bilirubin,Total 0.4 mg/dl (0.2-1.3); Bilirubin,Unconjugated 0.2 mg/dL (0.0-1.1); Blood Urea Nitrogen 15 mg/dl (9-20); Calcium 9.6 mg/dl (8.4-10.2); Carbon Dioxide 29 mmol/L (22.0-30.0); Chloride 102 mmol/L (98-107); Creatinine Clearance Estimated 187 mL/min (50-200); Estimated Glomerular Filt Rate 97 ml/min (>60); GFR (African American) 118 ML/MIN (>60); Glucose 128 mg/dl (74-100); Potassium 3.4 mmoL/L (3.5-5.1); Sodium 136 mmol/L (136-145); Total Protein,Serum 7.7 g/dl (6.3-8.2)
--- NOTE | 2021-07-11 20:36 | HMH.EDCP ---
ED Disposition Clinical Impression: Chest pain Qualifiers: Chest pain type: precordial pain Qualified Code(s): R07.2 - Precordial pain Disposition: Home, Self-Care Condition on Discharge: Good Instructions: DI for Atypical Chest Pain Additional Instructions: call pcp in am Referrals: Provider,Referral, [Referring] - - Critical Care Critical Care Time: No Attestation: On 07/11/21, the high probability of a clinically significant, sudden or life threatening deterioration of the following system(s) required my full and direct attention, intervention and personal management. The time I documented below is in addition to time spent performing reported procedures but includes the following listed in this critical care notation. Medical Decision Making - Medical Records Medical records reviewed: Yes: I reviewed the patient's medical records. - Martín Inquiry Pt receiving controlled substance: No Vital Signs: 07/11/21 20:03 Temperature 97.8 F Temperature Source Oral Pulse Rate [Right Radial] 122 H Respiratory Rate 22 Blood Pressure [Right Arm] 165/83 H Blood Pressure Mean [Right Arm] 110 Blood Pressure Source [Right Arm] Automatic Cuff Blood Pressure Position [Right Arm] Sitting 02 Sat by Pulse Oximetry 97 Oxygen Delivery Method Room Air - Lab Data Lab results reviewed: Yes: I reviewed the patient's lab results. Lab Results 07/11/21 20:07: WBC 8.0, RBC 5.14, Hgb 16.3, Hct 46.1, MCV 89.7, MCH 31.7 H, MCHC 35.3, RDW 13.4, Plt Count 273, MPV 8.5, Neut % (Auto) 62.8, Lymph % (Auto) 29.7, [place] % (Auto) 6.4, Eos % (Auto) 0.3, Baso % (Auto) 0.8, Neut # (Auto) 5.0, Lymph # (Auto) 2.4, [place] # (Auto) 0.5, Eos # (Auto) 0.0, Baso # (Auto) 0.1 07/11/21 20:07: Sodium 136, Potassium 3.4 L, Chloride 102, Carbon Dioxide 29, Anion Gap 8.4, BUN 15, Creatinine 0.90, Estimated Creat Clear 187, Estimated GFR 97, Est GFR ( Amer) 118, Glucose 128 H, Calcium 9.6, Total Bilirubin 0.4, Direct Bilirubin 0.2, Conjugated Bilirubin 0.0, Indirect Bilirubin 0.2, Unconjugated Bilirubin 0.2, AST 32, ALT 42, Alkaline Phosphatase 110, Troponin I < 0.01, Total Protein 7.7, Albumin 4.7, Thyroxine (T4) 8.0 Result diagrams: 07/11/21 20:07 07/11/21 20:07 Orders (Tests/Meds): ED MEDICATIONS Generic Name Dose Route Start Last Admin Trade Name Freq PRN Reason Stop Dose Admin Lactated Ringer's 1,000 mls @ 999 mls/hr 07/11/21 20:15 07/11/21 20:37 Lactated Ringer's 1000 Ml Bag IV 07/11/21 21:15 999 mls/hr .Q1H1M AJ Administration Sodium Chloride 10 ml 07/11/21 20:06 Sodium Chloride 0.9% 10ml Vial IV 08/10/21 20:05 NEEDED PRN to Dilute Lorazepam inj Sodium Chloride 10 ml 07/11/21 20:42 Sodium Chloride 0.9% 10ml Vial IV 08/10/21 20:41 NEEDED PRN to Dilute Lorazepam inj Discontinued Medications Generic Name Dose Route Start Last Admin Trade Name Freq PRN Reason Stop Dose Admin Lorazepam 0.5 mg 07/11/21 20:06 07/11/21 20:18 Lorazepam 2mg/Ml Vial IV 07/11/21 20:07 Not Given ONCE ONE Lorazepam 0.5 mg 07/11/21 20:42 07/11/21 20:56 Lorazepam 2mg/Ml Vial IV 07/11/21 20:43 0.5 mg ONCE ONE Administration Ondansetron HCl 4 mg 07/11/21 20:37 07/11/21 20:38 Ondansetron 4mg/2ml Vial IV 07/11/21 20:38 4 mg ONCE ONE Administration ORDERS Category Date Time Status Basic Metabolic Panel Stat Lab 07/11/21 20:07 Results Liver Panel Stat Lab 07/11/21 20:07 Results T4 (Thyroxine) Stat Lab 07/11/21 20:07 Results TSH [Thyroid Stimulating Hormone] Stat Lab 07/11/21 20:07 Results Troponin I Q3H Lab 07/11/21 23:15 Ordered Troponin I Q3H Lab 07/12/21 02:15 Ordered Troponin I Stat Lab 07/11/21 20:07 Results - Radiology Data #1 Image(s): Chest Image Reviewed: Yes I have reviewed radiologist's interpretation Preliminary Findings: Normal/NAD - CT Data CT Scan: Chest Time Received: 21:[address] Reviewed: Yes: I have viewed the radiologis
[2021-07-11 20:47] LABS: Troponin I < 0.01 ng/ml (0.00-0.034)
[2021-07-11 21:00] LABS: Thyroid Stimulating Hormone 2.06 uIU/mL (0.465-4.68)
[2021-07-11 21:19] VITALS: BP 141/98; PULSE 107; RESP 18; TEMP 36.7; O2SAT 96
== END 2021-07-11 21:24 | disposition home or self-care (01) ==
PROVIDERS: Emergency Provider Emergency Medicine; PCP Family Medicine
DX: R07.9 Chest pain, unspecified (principal); F41.9 Anxiety disorder, unspecified; Z88.0 Allergy status to penicillin; Z86.16 Personal history of COVID-19
CPT/HCPCS: 71046; 71275; 80048; 80076; 84436; 84443; 84484; 85025; 93005; 96365; 96375; 99283; J2405; Q9967

== ENCOUNTER 2021-12-06 17:11 | Emergency (ER) | payer OTHER, SELFPAY ==
[2021-12-06 18:15] VITALS: BP 134/92; PULSE 77; RESP 18; TEMP 36.8; O2SAT 96; BMI 34.0
--- NOTE | 2021-12-06 18:38 | HMH.EDUTC ---
[facility] – [place] Disposition Clinical Impression: URI (upper respiratory infection) Qualifiers: URI type: unspecified URI Qualified Code(s): J06.9 - Acute upper respiratory infection, unspecified Disposition: Home, Self-Care Condition on Discharge: Good Instructions: Cough, DI for Cough -- Adult, DI for Sinusitis Additional Instructions: *Monitor Temp, Over the counter Motrin or Tylenol as directed/as needed Tylenol every 4 hours and Motrin every 6 hours (as long as your family doctor has told you that you can take it) for fever or pain. and straight to ER if unable to lower temp less than 101.0 after medication given *Warm salt water gargles may help to soothe the throat *Throat Lozenges *Warm fluids like tea with honey may help to soothe the throat *Sleep elevated *Humidifier/Vaporizer *Flonase 2 sprays in each nostril daily but be aware that it may take 2-3 days before you notice improvement *Bromfed may cause drowsiness. Know how it effects you (your child) before driving, caring for small child, or sending your child to school. Not other antihistamines/allergy medications while taking bromfed Follow up IMMEDIATELY for new or worsening symptoms or no Noticeable improvement over the next 48-72 hours. 911 for difficulty breathing or swallowing You had Upper Respiratory Panel done in the [facility] you can check your results on the [facility] My Health Portal in the next 24-48 hours Prescriptions: Benzonatate [Benzonatate 100mg cap] 100 mg PO Q8HP PRN #30 cap PRN Reason: Cough Transmission Status: Pending to [facility] # Azithromycin [Z-Qasim 250mg Tab] 250 mg PO DIRECTED #6 tab Transmission Status: Pending to [facility] # Ondansetron [Zofran 4mg ODT] 4 mg PO TIDP PRN #10 tab PRN Reason: Nausea Transmission Status: Pending to [facility] # Referrals: Provider,Referral, [Primary Care Provider] - As needed Forms: Work/School Release Time of Disposition: 19:17 Medical Decision Making - Martín Inquiry Pt receiving controlled substance: No Martín was queried for this patient: No Vital Signs: 12/06/21 18:15 Temperature 98.3 F Temperature Source Oral Pulse Rate [Right] 77 Respiratory Rate 18 Blood Pressure [Right Arm] 134/92 H Blood Pressure Mean [Right Arm] 106 Blood Pressure Source [Right Arm] Automatic Cuff Blood Pressure Position [Right Arm] Sitting 02 Sat by Pulse Oximetry 96 Oxygen Delivery Method Room Air - Lab Data Lab results reviewed: Yes: I reviewed the patient's lab results. Orders (Tests/Meds): ED MEDICATIONS Discontinued Medications Generic Name Dose Route Start Last Admin Trade Name Nieves PRN Reason Stop Dose Admin Ondansetron HCl 4 mg 12/06/21 18:44 12/06/21 18:51 Ondansetron 4mg Odt SL 12/06/21 18:45 4 mg ONCE ONE Administration ORDERS Category Date Time Status Full Resp Panel w/COVID ([facility]) Routine Lab 12/06/21 18:52 Ordered [facility] [place] HPI - General Stated complaint: nausa,us set stomach,SOB,,Body pain Time Seen by Provider: 12/06/21 18:39 Mode of Arrival: Ambulatory Source of Information: Patient Limitations: No Limitations Description of Symptoms (Recalled from Triage Doc. by RN): PATIENT C/O NAUSEA, SOA, BODY ACHES, AND TROUBLE SLEEPING HEENT Symptoms (Recalled from RN notes): No Resp Symptoms (Recalled from RN notes): No Skin Symptoms (Recalled from RN notes): No MS Symptoms (Recalled from RN notes): No Functional Status (Recalled from RN notes): wnl - History of Present Illness Provider Complaint: Patient states that he has not felt well for about a week States that he has been having body aches, chills, cough, nausea and at times felt a little SOA States that he is not sleeping well due to the cough and today he was still feeling bad so he came in to get checked out - Related Data Home Medications Medication Instructions Recorded Confirmed ALPRAZolam [Xanax 2mg Tab] 2 mg PO TID 12/08/18 07/11/21 Prev
[2021-12-06 19:20] VITALS: BP 134/92; PULSE 77; RESP 18; TEMP 36.8; O2SAT 96
[2021-12-06 21:58] LABS: UTC Influenza A Antigen Negative (Negative); UTC Influenza B Antigen Negative (Negative)
== END 2021-12-06 19:26 | disposition home or self-care (01) ==
PROVIDERS: Emergency Provider Nurse Practitioner
DX: J06.9 Acute upper respiratory infection, unspecified (principal)
CPT/HCPCS: 87804; 99212; G0463

== ENCOUNTER 2022-01-07 11:09 | Emergency (ER) | payer OTHER, SELFPAY ==
[2022-01-07 11:10] VITALS: BP 155/88; PULSE 97; RESP 16; TEMP 36.6; O2SAT 97; BMI 34.9
--- NOTE | 2022-01-07 11:14 | XR_ITS ---
FINAL REPORT TECHNIQUE: Single view chest CLINICAL HISTORY: fall, trauma COMPARISON: 07/12/2021 FINDINGS: A single view of the chest was obtained. The heart and mediastinum are within normal limits. The lungs are clear. There is no pneumothorax. Osseous structures are unremarkable. IMPRESSION: No acute cardiopulmonary process. Reviewed, Interpreted and Dictated by Jeet Betts III, MD Transcribed by Randi Heart Authenticated and [facility]
--- NOTE | 2022-01-07 11:16 | HMH.EDGENADL ---
ED Disposition Clinical Impression: Blunt abdominal trauma Qualifiers: Encounter type: initial encounter Qualified Code(s): S39.91XA - Unspecified injury of abdomen, initial encounter Disposition: Home, Self-Care Condition on Discharge: Fair Instructions: DI for Acute Abdominal Pain, DI for Blunt Trauma Additional Instructions: You have been evaluated for abdominal pain, injury. You have been diagnosed with blunt abdominal trauma and contusion. Please monitor your symptoms at home. Naproxen for pain. Zofran for nausea. Follow-up with your primary care doctor tomorrow as scheduled. Return to the emergency department for any new or worsening symptoms, pain, vomiting, fever, other concerns Prescriptions: Naproxen [Naproxen 500mg tab] 500 mg PO BID #20 tab Transmission Status: Received by [facility] #[id number] ondansetron HCL [Ondansetron 4mg tab*] 4 mg PO Q6 PRN #12 tab PRN Reason: Nausea Transmission Status: Received by [facility] #[id number] Referrals: Flora Key MD [Primary Care Provider] - Forms: Work/School Release Time of Disposition: 13:56 - Critical Care Critical Care Time: No Attestation: On , the high probability of a clinically significant, sudden or life threatening deterioration of the following system(s) required my full and direct attention, intervention and personal management. The time I documented below is in addition to time spent performing reported procedures but includes the following listed in this critical care notation. Medical Decision Making - Medical Records Medical records reviewed: Yes: I reviewed the patient's medical records. - Martín Inquiry Pt receiving controlled substance: No Vital Signs: 01/07/22 11:10 01/07/22 13:00 01/07/22 13:31 Temperature 98 F Temperature Source Oral Pulse Rate 83 97 H Pulse Rate [Left Radial] 97 H Respiratory Rate 16 16 Blood Pressure 139/81 128/94 H Blood Pressure [Right Arm] 155/88 H Blood Pressure Mean 100 100 Blood Pressure Mean [Right Arm] 110 Blood Pressure Source [Right Arm] Automatic Cuff Blood Pressure Position Blood Pressure Position [Right Arm] Sitting 02 Sat by Pulse Oximetry 97 98 100 Oxygen Delivery Method Room Air Room Air 01/07/22 14:00 01/07/22 14:10 01/07/22 14:12 Temperature 98.0 F 98 F Temperature Source Oral Pulse Rate 113 H 97 H 78 Pulse Rate [Left Radial] Respiratory Rate 16 16 Blood Pressure 138/96 H 138/96 H 132/74 Blood Pressure [Right Arm] Blood Pressure Mean 107 Blood Pressure Mean [Right Arm] Blood Pressure Source [Right Arm] Blood Pressure Position Sitting Blood Pressure Position [Right Arm] 02 Sat by Pulse Oximetry 97 Oxygen Delivery Method Room Air Room Air - Lab Data Lab Results 01/07/22 11:24: WBC 8.0, RBC 5.04, Hgb 16.0, Hct 44.5, MCV 88.3, MCH 31.8 H, MCHC 36.0 H, RDW 13.1, Plt Count 259, MPV 9.0, Neut % (Auto) 68.5, Lymph % (Auto) 25.8, [place] % (Auto) 4.0, Eos % (Auto) 0.2, Baso % (Auto) 1.5, Neut # (Auto) 5.5, Lymph # (Auto) 2.1, [place] # (Auto) 0.3, Eos # (Auto) 0.0, Baso # (Auto) 0.1 01/07/22 11:24: Sodium 138, Potassium 3.9, Chloride 104, Carbon Dioxide 27, Anion Gap 10.9, BUN 10, Creatinine 0.80, Estimated Creat Clear 223, Estimated GFR 111, Est GFR ( Amer) 135, Glucose 126 H, Calcium 9.8, Total Bilirubin 0.6, AST 34, ALT 41, Alkaline Phosphatase 126, Total Protein 7.9, Albumin 4.7, Globulin 3.2, Albumin/Globulin Ratio 1.5, Lipase 66 Result diagrams: 01/07/22 11:24 01/07/22 11:24 Orders (Tests/Meds): ED MEDICATIONS Discontinued Medications Generic Name Dose Route Start Last Admin Trade Name Freq PRN Reason Stop Dose Admin Iopamidol 75 ml 01/07/22 12:47 01/07/22 12:47 Iopamidol-370 (76%);100ml Bottle IV 01/07/22 12:48 75 ml ONCE ONE Administration Ketorolac Tromethamine 15 mg 01/07/22 11:15 01/07/22 11:25 Ketorolac 30mg/Ml Vial IV 01/07/22 11:16 15 mg ONCE ONE Administration M
[2022-01-07 11:38] LABS: Chloride 104 mmol/L (98-107)
[2022-01-07 11:39] LABS: Potassium 3.9 mmoL/L (3.5-5.1); Sodium 138 mmol/L (136-145)
[2022-01-07 11:40] LABS: Basophils # 0.1 K/mm3 (0-0.2); Basophils % 1.5 % (0.1-2.0); Eosinophils % 0.2 % (0.1-12.0); Hematocrit 44.5 % (42.0-52.0); Lymphocytes # 2.1 K/mm3 (0.7-4.5); Lymphocytes % 25.8 % (10-50); Mean Corpuscular Hemoglobin 31.8 pg (27.0-31.2); Mean Corpuscular Volume 88.3 fl (80-94); Monocytes # 0.3 K/mm3 (0.1-1.0); Neutrophils # 5.5 K/mm3 (1.8-7.8); Neutrophils % 68.5 % (37.0-80.0); Platelet Count 259 K/mm3 (142-424); Red Blood Count 5.04 M/mm3 (4.60-6.20); Red Cell Distribution Width 13.1 % (11.5-17.5)
[2022-01-07 11:41] LABS: Alanine Aminotransferase 41 U/L (12-78); Albumin Level 4.7 g/dl (3.5-5.0); Albumin/Globulin Ratio 1.5 (1.1-1.8); Alkaline Phosphatase 126 U/L (38-126); Anion Gap 10.9 mEq/L (5-15); Aspartate Amino Transferase 34 U/L (17-59); Bilirubin,Total 0.6 mg/dl (0.2-1.3); Blood Urea Nitrogen 10 mg/dl (9-20); Carbon Dioxide 27 mmol/L (22.0-30.0); Creatinine Clearance Estimated 223 mL/min (50-200); Estimated Glomerular Filt Rate 111 ml/min (>60); GFR (African American) 135 ML/MIN (>60); Globulin 3.2 g/dL (1.3-3.2); Lipase 66 U/L (23-300); Total Protein,Serum 7.9 g/dl (6.3-8.2)
[2022-01-07 11:42] LABS: Calcium 9.8 mg/dl (8.4-10.2); Glucose 126 mg/dl (74-100)
--- NOTE | 2022-01-07 11:45 | PC.NURSE ---
pt stated that he was feeling very nauseated, advised
--- NOTE | 2022-01-07 11:50 | PC.NURSE ---
rad at BS for portable xray
--- NOTE | 2022-01-07 12:12 | CT_ITS ---
FINAL REPORT TECHNIQUE: After the administration of intravenous contrast, axial images were obtained through the abdomen and pelvis by computed tomography. This study was performed with technique to keep radiation doses as low as reasonably achievable, (ALARA). Individualized dose reduction techniques using automated exposure control or adjustment of the MA and/or KV according to the patient's size were employed. CLINICAL HISTORY: mid abdominal pain, trauma COMPARISON: 09/11/2020, 06/02/2022 FINDINGS: Abdomen: The lung bases are clear. There is mild fatty infiltration of the liver. The spleen and gallbladder are unremarkable. The adrenals are normal. The pancreas is unremarkable. The kidneys enhance appropriately. The aorta is normal in caliber. There is no free fluid or adenopathy. There are stable postoperative changes at the GE junction and within the left upper quadrant. Pelvis: The appendix is normal. The urinary bladder is unremarkable. There is no free fluid or adenopathy. IMPRESSION: No acute intra-abdominal process or evidence of traumatic injury. Reviewed, Interpreted and Dictated by Jeet Betts III, MD Transcribed by Randi Heart Authenticated and [facility]
--- NOTE | 2022-01-07 12:40 | PC.NURSE ---
pt to CT
[2022-01-07 13:00] VITALS: BP 139/81; PULSE 83; RESP 16; O2SAT 98
--- NOTE | 2022-01-07 13:07 | PC.NURSE ---
checked on pt at this time, reports he is feeling better after pain medication administration. Updated pt we are just waiting on Ct scan results. Pt states no needs at this time.
[2022-01-07 13:31] VITALS: BP 128/94; PULSE 97; O2SAT 100
[2022-01-07 14:00] VITALS: BP 138/96; PULSE 113; O2SAT 97
[2022-01-07 14:10] VITALS: BP 138/96; PULSE 97; RESP 16; TEMP 36.7; O2SAT 100
[2022-01-07 14:12] VITALS: BP 132/74; PULSE 78; RESP 16; TEMP 36.6; O2SAT 98
== END 2022-01-07 14:11 | disposition home or self-care (01) ==
PROVIDERS: Emergency Provider Emergency Medicine; PCP Family Medicine
DX: S36.39XA Other injury of stomach, initial encounter (principal); W17.89XA Other fall from one level to another, initial encounter; Y99.0 Civilian activity done for income or pay; Z88.0 Allergy status to penicillin
CPT/HCPCS: 71045; 74177; 80053; 83690; 85025; 96374; 96375; 99284; J2405; Q9967

== ENCOUNTER 2022-03-26 13:25 | Emergency (ER) | payer OTHER, SELFPAY ==
[2022-03-26 13:48] VITALS: BP 144/88; PULSE 95; RESP 18; TEMP 36.9; O2SAT 99; BMI 34.4
--- NOTE | 2022-03-26 14:01 | HMH.EDUTC ---
[facility] [place] Clinical Impression: Viral syndrome, Exposure to COVID-19 virus Disposition: Home, Self-Care Condition on Discharge: Good Instructions: Preventing the Spread of Coronavirus Discharge Instructions, DI for COVID-19 (Suspected or Confirmed ) Additional Instructions: Drink plenty of fluids. Take tylenol or ibuprofen for pain or fever. Take the medications as directed. Follow up with your regular doctor. GO TO THE ER FOR ANY WORSENING SYMPTOMS Quarantine until you know the results of your covid-19 test. Notify your school or workplace of your results and follow their instructions regarding return to work/school. Prescriptions: Promethazine/Dextromethorphan [Promethazine-Dm Syrup] 5 ml PO Q6HP PRN #240 ml PRN Reason: Cough Transmission Status: Pending to [email or web address] # Ondansetron [Zofran 4mg ODT] 4 mg PO Q8HP PRN #20 tab PRN Reason: Nausea Transmission Status: Pending to [email or web address] # Referrals: Flora Key MD [Primary Care Provider] - Forms: Work/School Release Time of Disposition: 14:25 Medical Decision Making - Medical Records Medical records reviewed: No: I reviewed the patient's medical records. - Martín Inquiry Pt receiving controlled substance: No Vital Signs: 03/26/22 13:48 Temperature 98.4 F Temperature Source Oral Pulse Rate [Left] 95 H Respiratory Rate 18 Blood Pressure [Right Arm] 144/88 H Blood Pressure Mean [Right Arm] 106 02 Sat by Pulse Oximetry 99 - Lab Data Lab results reviewed: No: I reviewed the patient's lab results. Orders (Tests/Meds): ORDERS Category Date Time Status Covid-19 Nasal PCR ([facility]) Routine Lab 03/26/22 13:47 Received [facility] [place] HPI - General Stated complaint: Nausea, headache, dizzy, SOA Time Seen by Provider: 03/26/22 14:01 Mode of Arrival: Ambulatory Source of Information: Patient Limitations: No Limitations Description of Symptoms (Recalled from Triage Doc. by RN): patient comes in with complaints of nausea, vomitting, body aches, shortness of breath, dizziness. symptoms began 2 days ago. HEENT Symptoms (Recalled from RN notes): Yes Resp Symptoms (Recalled from RN notes): No Skin Symptoms (Recalled from RN notes): No MS Symptoms (Recalled from RN notes): No Functional Status (Recalled from RN notes): n/a - History of Present Illness Provider Complaint: He states that for the past 2 days he has had sinus congestion, body aches, chills and she has felt bad. - Related Data Home Medications Medication Instructions Recorded Confirmed ALPRAZolam [Xanax 2mg Tab] 2 mg PO TID 12/08/18 07/11/21 Previous Rx's Medication Instructions Recorded Azithromycin [Z-Qasim 250mg Tab] 250 mg PO DIRECTED #6 tab 12/06/21 Benzonatate [Benzonatate 100mg 100 mg PO Q8HP PRN #30 cap 12/06/21 cap] Ondansetron [Zofran 4mg ODT] 4 mg PO TIDP PRN #10 tab 12/06/21 Naproxen [Naproxen 500mg tab] 500 mg PO BID #20 tab 01/07/22 ondansetron HCL [Ondansetron 4mg 4 mg PO Q6 PRN #12 tab 01/07/22 tab*] Ondansetron [Zofran 4mg ODT] 4 mg PO Q8HP PRN #20 tab 03/26/22 Promethazine/Dextromethorphan 5 ml PO Q6HP PRN #240 ml 03/26/22 [Promethazine-Dm Syrup] Allergies Allergy/AdvReac Type Severity Reaction Status Date / Time Penicillins Allergy Verified 03/26/22 13:51 - Worker's Comp Is this a Worker's Comp case?: No [facility] History - Hepatitis A Screen Attestation statement:: This patient has been screened for Hepatitis A risk factors. I have reviewed the patient's past medical history: Yes Medical History: Denies:: Cancer, Diabetes Mellitus Type 1, Diabetes Mellitus Type 2, MRSA Laterality Cases: Bilateral: Tonsillectomy Amputation: No Fractures: No - Social History Smoking Status: Never smoker Alcohol Intake: never Alcohol Intake Frequency:: holidays/special occasions only Occupational Status: other ROS Obtained: Yes All systems reviewed & no additional compl
[2022-03-26 14:28] VITALS: BP 144/88; PULSE 95; RESP 18; TEMP 36.9
== END 2022-03-26 14:33 | disposition home or self-care (01) ==
PROVIDERS: Emergency Provider Nurse Practitioner Family; PCP Family Medicine
DX: Z20.822 Contact with and (suspected) exposure to COVID-19 (principal); B34.9 Viral infection, unspecified; R11.0 Nausea; R51.9 Headache, unspecified; R42 Dizziness and giddiness; R06.02 Shortness of breath
CPT/HCPCS: 99212; C9803; G0463; U0003; U0005

== ENCOUNTER 2022-10-30 15:29 | Emergency (ER) | payer OTHER, SELFPAY ==
[2022-10-30 15:37] VITALS: BP 142/105; PULSE 101; RESP 20; TEMP 36.8; O2SAT 100; BMI 32.7
--- NOTE | 2022-10-30 15:52 | CT_ITS ---
PROCEDURE INFORMATION: Exam: CT Abdomen And Pelvis With Contrast Exam date and time: 10/30/2022 4:47 PM Age: 32 years old Clinical indication: Condition or disease; Other: Umbilical abcess TECHNIQUE: Imaging protocol: Computed tomography of the abdomen and pelvis with contrast. Radiation optimization: All CT scans at this facility use at least one of these dose optimization techniques: automated exposure control; mA and/or kV adjustment per patient size (includes targeted exams where dose is matched to clinical indication); or iterative reconstruction. Contrast material: ISOVUE; Contrast volume: 75 ml; Contrast route: IV; REPORTING DATA: Count of CT and Cardiac NM exams in prior 12 months: This patient has received [address] and 0 known cardiac nuclear medicine studies in the 12 months prior to the current study. COMPARISON: CT ABDOMEN PELVIS W CON 01/07/2022 12:41 PM FINDINGS: Lungs: No acute findings in the visualized lower lungs. No consolidation. Liver: The liver is normal. Gallbladder and bile ducts: The gallbladder is unremarkable. No calcified stones or biliary dilatation. Pancreas: The pancreas is normal. Spleen: The spleen is normal. Adrenal glands: The adrenal glands are normal. Kidneys and ureters: The kidneys are normal. The ureters are normal. Stomach and bowel: No acute findings in the stomach. Gastric surgical changes, correlate for history of Naz fundoplication. Some scattered small intestinal air-fluid levels, no dilated loops or mucosal thickening.There is no evidence of intestinal perforation or obstruction. Appendix: No findings of appendicitis. Intraperitoneal space: There is no free intraperitoneal air. There is no significant free intraperitoneal fluid. Vasculature: There is no aortic aneurysm. Lymph nodes: No significantly enlarged lymph nodes by short axis criteria. Urinary bladder: The bladder is normal. Reproductive: The prostate and seminal vesicles are normal. Bones/joints: Multiple chronic anterior wedge compression deformities in the lower thoracic spine with kyphosis, multilevel disc disease and spondylosis.There is no evidence of acute fracture. Soft tissues: There is new soft tissue edema and thickening in the periumbilical region compared with the prior CT from 01/07/2022. Questionable tiny complex fluid collection or low-density phlegmon within this of up to 1.3 cm length and 7 x 8 mm diameter sagittal series 2003, image 141 and axial series 2002, images 149-152. This could be an evolving tiny abscess collection, but contains no gas bubbles. Comparison with the prior exam showed a minimal fatty umbilical hernia in this region. There are no herniated bowel loops. IMPRESSION: 1. Mild periumbilical cellulitis, with periumbilical soft tissue edema in the anterior abdomen wall. Questionable tiny evolving abscess collection within this, but this is only 1.3 cm length, 7 x 8 mm thickness. No definite drainable collection. No gas bubbles within this, or soft tissue emphysema. 2. No free fluid, free air or intraperitoneal abscess collection. 3. No herniated bowel loops. 4. Additional nonemergency and chronic findings as above.
[2022-10-30 16:00] VITALS: BP 138/97; PULSE 100; O2SAT 100
[2022-10-30 16:30] VITALS: BP 128/82; PULSE 95; O2SAT 98
[2022-10-30 17:27] LABS: Basophils # 0.1 K/mm3 (0-0.2); Basophils % 0.4 % (0.1-2.0); Eosinophils # 0.1 K/mm3 (0.0-0.4); Eosinophils % 0.5 % (0.1-12.0); Hematocrit 45.3 % (42.0-52.0); Hemoglobin 15.2 g/dL (14.1-18.0); Lymphocytes # 2.3 K/mm3 (0.7-4.5); Mean Corpuscular HGB Conc 33.6 g/dL (31.8-35.4); Mean Corpuscular Hemoglobin 30.2 pg (27.0-31.2); Mean Corpuscular Volume 89.9 fl (80-94); Mean Platelet Volume 8.2 fl (7.4-10.4); Monocytes # 0.6 K/mm3 (0.1-1.0); Monocytes % 3.7 % (1.7-9.3); Neutrophils # 12.2 K/mm3 (1.8-7.8); Neutrophils % 80.3 % (37.0-80.0); Platelet Count 342 K/mm3 (142-424); Red Blood Count 5.03 M/mm3 (4.60-6.20); Red Cell Distribution Width 12.7 % (11.5-17.5); White Blood Count 15.2 K/mm3 (4.8-10.8)
[2022-10-30 17:30] LABS: Alanine Aminotransferase 19 U/L (12-78); Albumin Level 4.5 g/dl (3.5-5.0); Albumin/Globulin Ratio 1.4 (1.1-1.8); Alkaline Phosphatase 114 U/L (38-126); Anion Gap 9.4 mEq/L (5-15); Aspartate Amino Transferase 26 U/L (17-59); Bilirubin,Total 0.5 mg/dl (0.2-1.3); Blood Urea Nitrogen 14 mg/dl (9-20); Calcium 8.9 mg/dl (8.4-10.2); Carbon Dioxide 33 mmol/L (22.0-30.0); Chloride 96 mmol/L (98-107); Creatinine Clearance Estimated 213 mL/min (50-200); Estimated Glomerular Filt Rate 111 ml/min (>60); GFR (African American) 134 ML/MIN (>60); Globulin 3.2 g/dL (1.3-3.2); Glucose 98 mg/dl (74-100); Potassium 4.4 mmoL/L (3.5-5.1); Sodium 134 mmol/L (136-145); Total Protein,Serum 7.7 g/dl (6.3-8.2)
[2022-10-30 17:44] LABS: MANUAL DIFFERENTIAL MANUAL DIFFERENTIAL (MANUAL DIFF)
[2022-10-30 18:00] VITALS: BP 118/79; PULSE 92; RESP 18; O2SAT 97
--- NOTE | 2022-10-30 19:03 | HMH.EDGENADL ---
Discharge Plan Disposition Patient Disposition: Home, Self-Care Condition: Good Prescriptions Prescriptions: New sulfamethoxazole-trimethoprim [Bactrim DS] 800-160 mg tablet 1 tab PO BID 7 Days Qty: 14 0RF No Action promethazine-DM 120 ML syrup 5 ml PO Q6HP PRN (Reason: Cough) Qty: 240 0RF ondansetron 4 MG tablet,disintegrating 4 mg PO Q8HP PRN (Reason: Nausea) Qty: 20 0RF alprazolam 2 MG tablet 2 mg PO TID benzonatate 100 MG capsule 100 mg PO Q8HP PRN (Reason: Cough) Qty: 30 0RF ondansetron 4 MG tablet,disintegrating 4 mg PO TIDP PRN (Reason: Nausea) Qty: 10 0RF azithromycin 250 MG tablet 250 mg PO DIRECTED Qty: 6 0RF Rx Instructions: Take two (2) tablets on day #1, then one (1) tablet day #2 thru #5 naproxen 500 MG tablet 500 mg PO BID Qty: 20 0RF ondansetron HCl 4 MG tablet 4 mg PO Q6 PRN (Reason: Nausea) Qty: 12 0RF Referrals Follow up/Referrals: Smitha Quinn MD [Primary Care Provider] - See instructions Activity Restrictions/Add. Instructions Additional Instructions/Restrictions: Warm compresses several times a day. Antibiotic as directed. Gentle compression to express purulent material. PCP follow-up in 1 to 2 days. Clinical Impressions Clinical Impression: Cellulitis Instructions Patient Instructions: Cellulitis Discharge ED Provider: Justus Padilla General Adult HPI General Chief complaint: Abdominal Pain Stated complaint: Hernia Time Seen by Provider: 10/30/22 16:00 Mode of Arrival: Ambulatory Source of Information: Patient Limitations: No Limitations Description of Symptoms (Recalled from ER Triage Doc. by RN): pt to ed c/o exacerbated umbilical hernia. pt states he has been lifting heavily at work. pt states a prior hx of hernia surgery. History of Present Illness HPI narrative: 32yo M presents to the ER secondary to what he believes is umbilical hernia. States he was lifting heavy at work yesterday. Symptoms ongoing today. Denies fever. No nausea or vomiting. Normal bowel movement. Related Data Home Medications Medication Instructions Recorded Confirmed alprazolam 2 mg tablet 2 mg PO TID Anxiety 12/08/18 07/11/21 Previous Rx's Medication Instructions Recorded azithromycin 250 mg tablet 250 mg PO DIRECTED #6 tabs 12/06/21 benzonatate 100 mg capsule 100 mg PO Q8HP PRN Cough #30 caps 12/06/21 ondansetron 4 mg disintegrating 4 mg PO TIDP PRN Nausea #10 tabs 12/06/21 tablet naproxen 500 mg tablet 500 mg PO BID #20 tabs 01/07/22 ondansetron HCl 4 mg tablet 4 mg PO Q6 PRN Nausea #12 tabs 01/07/22 ondansetron 4 mg disintegrating 4 mg PO Q8HP PRN Nausea #20 tabs 03/26/22 tablet promethazine-DM 6.25 mg-15 mg/5 mL 5 ml PO Q6HP PRN Cough #240 mL 03/26/22 oral syrup sulfamethoxazole 800 1 tab PO BID 7 days #14 tabs 10/30/22 mg-trimethoprim 160 mg tablet (Bactrim DS) Allergies Allergy/AdvReac Type Severity Reaction Status Date / Time Penicillins Allergy Verified 03/26/22 13:51 [facility] Disclaimer: The information contained in this section may have been updated after the patient was seen, as this information can be updated by other users. Social History Smoking Status: Never smoker alcohol intake: never current occupational status: other Travel in the last 8 weeks: None ROS Obtained: Yes Systems reviewed as appropriate & no additional complaints except as documented Physical Exam General General appearance: alert and in no apparent distress Head Head exam: atraumatic Eye Eye exam: Present normal appearance Neck Neck exam: Present trachea midline Chest Chest inspection: Present symmetric chest wall rise Respiratory Respiratory exam: Present normal lung sounds bilaterally; Absent respiratory distress Cardiovascular Cardiovascular exam: Present regular rate, normal rhythm and normal heart sounds Abdominal Exam Abdominal exam: Present
[2022-10-30 19:22] LABS: Lymphocytes % 15 % (10-50); Monocytes % 3 % (2-9); Neutrophils % 82 % (42-76); Platelet Estimate Normal; RBC Morphology Normal; Total Cells Counted 100
[2022-10-30 19:40] VITALS: BP 119/75; PULSE 91; RESP 18; TEMP 36.8; O2SAT 98
== END 2022-10-30 19:42 | disposition home or self-care (01) ==
PROVIDERS: Emergency Provider Family Medicine; PCP Family Medicine
DX: L03.311 Cellulitis of abdominal wall (principal)
CPT/HCPCS: 74177; 80053; 85007; 85025; 96374; 96375; 99284; J2405; Q9967

== ENCOUNTER 2024-01-26 18:47 | Emergency (ER) | payer OTHER, SELFPAY ==
[2024-01-26 18:48] VITALS: BP 125/88; PULSE 78; RESP 18; TEMP 36.6; O2SAT 99; BMI 33.3
--- NOTE | 2024-01-26 18:54 | ED_ITS ---
<Statement entered by Keke Grajeda DO - 01/27/24 00:08> I was consulted by the EMELY, and we discussed the complexity of the problems being addressed. I approved the treatment and management plan for this patient's care in the emergency department, thus performing a substantive portion of the medical decision making. Keke Grajeda DO Discharge Plan Disposition Patient Disposition: Home, Self-Care Condition: Good Prescriptions Prescriptions: New pantoprazole [Protonix] 40 mg tablet,delayed release (DR/EC) 40 mg PO HS 56 Days Qty: 56 0RF No Action promethazine-DM 120 ML syrup 5 ml PO Q6HP PRN (Reason: Cough) Qty: 240 0RF ondansetron 4 MG tablet,disintegrating 4 mg PO Q8HP PRN (Reason: Nausea) Qty: 20 0RF alprazolam 2 MG tablet 2 mg PO TID benzonatate 100 MG capsule 100 mg PO Q8HP PRN (Reason: Cough) Qty: 30 0RF ondansetron 4 MG tablet,disintegrating 4 mg PO TIDP PRN (Reason: Nausea) Qty: 10 0RF azithromycin 250 MG tablet 250 mg PO DIRECTED Qty: 6 0RF Rx Instructions: Take two (2) tablets on day #1, then one (1) tablet day #2 thru #5 naproxen 500 MG tablet 500 mg PO BID Qty: 20 0RF ondansetron HCl 4 MG tablet 4 mg PO Q6 PRN (Reason: Nausea) Qty: 12 0RF sulfamethoxazole-trimethoprim [Bactrim DS] 800-160 mg tablet 1 tab PO BID 7 Days Qty: 14 0RF Referrals Follow up/Referrals: Bettye Tellez APRN [Primary Care Provider] - See instructions Activity Restrictions/Add. Instructions Additional Instructions/Restrictions: Ace keep your appointment with gastroenterology as scheduled. I have started you on a proton pump inhibitor and sent the prescription into your pharmacy. Return to ER for any worsening signs or symptoms. Clinical Impressions Clinical Impression: Abdominal pain, acute, epigastric Instructions Patient Instructions: DI for Acute Abdominal Pain Discharge ED Provider: Keke Grajeda General Adult HPI General Chief complaint: Abdominal Pain Stated complaint: abd pain, upset stomach Time Seen by Provider: 01/26/24 18:54 History of Present Illness HPI narrative: Patient presents for evaluation of acute abdominal pain. Patient reports a several month history of daily morning nausea however it is worsened to all day long over the past week. Then for the past 24 hours patient has been having some left upper quadrant abdominal pain associate with nausea. Patient does have a previous history of gastroesophageal reflux disease status post Naz fundoplication but has been doing well with no complaints up to now. He has seen his PCP and does have an EGD scheduled with gastroenterology in the first portion of February as well. Patient currently denies chest pain fever chills hemoptysis hematochezia melena vomiting or diarrhea but patient does report having dry heaves as he has difficulty vomiting status post fundoplication Related Data Home Medications Medication Instructions Recorded Confirmed alprazolam 2 mg tablet 2 mg PO TID Anxiety 12/08/18 07/11/21 Previous Rx's Medication Instructions Recorded azithromycin 250 mg tablet 250 mg PO DIRECTED #6 tabs 12/06/21 benzonatate 100 mg capsule 100 mg PO Q8HP PRN Cough #30 caps 12/06/21 ondansetron 4 mg disintegrating 4 mg PO TIDP PRN Nausea #10 tabs 12/06/21 tablet naproxen 500 mg tablet 500 mg PO BID #20 tabs 01/07/22 ondansetron HCl 4 mg tablet 4 mg PO Q6 PRN Nausea #12 tabs 01/07/22 ondansetron 4 mg disintegrating 4 mg PO Q8HP PRN Nausea #20 tabs 03/26/22 tablet promethazine-DM 6.25 mg-15 mg/5 mL 5 ml PO Q6HP PRN Cough #240 mL 03/26/22 oral syrup sulfamethoxazole 800 1 tab PO BID 7 days #14 tabs 10/30/22 mg-trimethoprim 160 mg tablet (Bactrim DS) pantoprazole 40 mg tablet,delayed 40 mg PO HS 8 weeks #56 tabs 01/26/24 release (Protonix) Allergies Allergy/AdvReac Type Severity Reaction Status Date / Time Penicillins Allergy Verified 03/26/22 13:[address] [facility] Disclaimer: The information contained in this section may have been updated after the patient was seen, as this information can be updated by other users. Social History Smoking Status: Never smoker alcohol intake: never current occupational status: other Travel in the last 8 weeks: None ROS Obtained: Yes Systems reviewed as appropriate & no additional complaints except as documented Physical Exam General General appearance: alert and in no apparent distress Respiratory Respiratory exam: Present normal lung sounds bilaterally Cardiovascular Cardiovascular exam: Present regular rate and normal rhythm Abdominal Exam Abdominal exam: Present soft, tenderness (Patient has mild epigastric and left upper quadrant tenderness to palpation without rebound or guarding or rigidity. Bowel sounds are normal active.) and normal bowel sounds; Absent guarding, rebound or rigidity Back Exam Back exam: Present normal inspection and full ROM; Absent tenderness, CVA tenderness (R) or CVA tenderness (L) Neurological Exam Neurological exam: Present alert and oriented X3 Medical Decision Making Medical Records Medical records reviewed: Yes I reviewed the patient's medical records. Martín Inquiry Pt receiving controlled substance: No Vital Signs: 01/26/24 18:48 01/26/24 19:30 01/26/24 22:13 Temperature 98 F 97.9 F Temperature Source Oral Pulse Rate 82 70 Pulse Rate [Right Brachial] 78 Respiratory Rate 18 18 Blood Pressure 129/90 150/70 H Blood Pressure [Right Arm] 125/88 Blood Pressure Mean [Right Arm] 100 02 Sat by Pulse Oximetry 99 97 Oxygen Delivery Method Room Air Room Air Lab Data Lab results reviewed: Yes I reviewed the patient's lab results. Lab Results 01/26/24 18:50: Urine Color Yellow, Urine Appearance Clear, Urine pH 6.0, Ur Specific [place] >= 1.030, Urine Protein Negative, Urine Glucose (UA) Negative, Urine Ketones Negative, Urine Blood Negative, Urine Nitrate Negative, Urine Bilirubin Negative, Urine Urobilinogen 1.0, Ur Leukocyte Esterase Negative, Urine WBC 3-5, Urine Bacteria 1+, Urine Mucus 1+ 01/26/24 20:00: WBC 6.7, RBC 4.91, Hgb 15.2, Hct 46.1, MCV 94.0, MCH 31.0, MCHC 33.0, RDW 13.4, Plt Count 245, MPV 9.0, Neut % (Auto) 52.2, Lymph % (Auto) 34.9, Calloway % (Auto) 9.3, Eos % (Auto) 1.7, Baso % (Auto) 1.9, Neut # (Auto) 3.5, Lymph # (Auto) 2.3, C[place]ay # (Auto) 0.6, Eos # (Auto) 0.1, Baso # (Auto) 0.1, Sodium 137, Potassium 4.3, Chloride 100, Carbon Dioxide 32 H, Anion Gap 9.3, BUN 16, Creatinine 0.90, Estimated Creat Clear 191, Estimated GFR 96, Est GFR ( Amer) 116, Glucose 95, Calcium 9.3, Magnesium 2.1, Total Bilirubin 0.3, AST 28, ALT 25, Alkaline Phosphatase 114, Troponin I < 0.01, Total Protein 7.2, Albumin 4.2, Globulin 3.0, Albumin/Globulin Ratio 1.4, Lipase 50 01/26/24 20:00 01/26/24 20:00 Orders (Tests/Meds): ED MEDICATIONS Discontinued Medications Generic Name Dose Route Start Last Admin Trade Name Freq PRN Reason Stop Dose Admin Acetaminophen 1,000 mg 01/26/24 19:37 01/26/24 19:56 Acetaminophen 1,000mg/100ml Vial IV 01/26/24 19:38 1,000 mg ONCE ONE Administration Belladonna Alkaloids 60 ml 01/26/24 19:37 01/26/24 19:55 Belladonna Alkaloids 60 Ml Ml PO 01/26/24 19:38 60 ml ONCE ONE Administration Lactated Ringer's 1,000 mls @ 999 mls/hr 01/26/24 19:37 01/26/24 19:56 Lactated Ringer's 1000 Ml Bag IV 01/26/24 20:37 999 mls/hr .Q1H1M ONE Administration Iopamidol 75 ml 01/26/24 20:11 01/26/24 20:12 Iopamidol-370 (76%);100ml Bottle IV 01/26/24 20:12 75 ml ONCE ONE Administration Ketorolac Tromethamine 15 mg 01/26/24 19:37 01/26/24 19:57 Ketorolac 30mg/Ml Vial IV 01/26/24 19:38 15 mg ONCE ONE Administration Sodium Chloride 10 ml 01/26/24 20:11 01/26/24 20:12 Sodium Chloride 0.9% 10ml Syr (Rad Only) IV 02/25/24 20:10 10 ml NEEDED PRN Administration Maintain IV Site ORDERS Category Date Time Status CT abdomen pelvis w con Stat Cat Scan 01/26/24 19:37 Completed CBC w/Auto Diff [Complete Blood Count Auto Diff] Stat Lab 01/26/24 20:00 Completed CMP [Comprehensive Metabolic Panel] Stat Lab 01/26/24 20:00 Completed Lipase Stat Lab 01/26/24 20:00 Completed Magnesium Stat Lab 01/26/24 20:00 Completed Trop I [Troponin I] Stat Lab 01/26/24 20:00 Completed UA [Urinalysis and Microscopic] Stat Lab 01/26/24 18:50 Completed Medical Decision Narrative: In summary patient is a 33-year-old male who presents to the emergency department for evaluation of abdominal pain. Patient is hemodynamically stable upon arrival, afebrile. Physical exam is remarkable for epigastric abdominal tenderness without rebound or guarding or rigidity. Bowel sounds are normal active.. Differential diagnosis includes ulcer versus esophagitis versus gastritis versus gas trapping versus bowel obstruction etc. Initial workup will be conducted with hematologic labs CT scan abdomen pelvis urinalysis. Initial interventions include crystalloid bolus Toradol Tylenol and GI cocktail initial workup reviewed by me shows his hematologic labs are nonactionable and his CT scan abdomen pelvis not show any acute processes prior to radiologist read.. Upon repeat evaluation patient patient had complete resolution of his symptoms after initial intervention. Given this patient is appropriate for discharge with close follow-up with his PCP and encouragement to keep his gastroenterology appointment. Critical Care Critical Care Time Critical Care Time: No
[2024-01-26 19:30] VITALS: BP 129/90; PULSE 82; O2SAT 97
--- NOTE | 2024-01-26 19:37 | CT_ITS ---
PROCEDURE INFORMATION: Exam: CT Abdomen And Pelvis With Contrast Exam date and time: 01/26/2024 8:09 PM Age: 33 years old Clinical indication: Abdominal pain TECHNIQUE: Imaging protocol: Computed tomography of the abdomen and pelvis with contrast. Radiation optimization: All CT scans at this facility use at least one of these dose optimization techniques: automated exposure control; mA and/or kV adjustment per patient size (includes targeted exams where dose is matched to clinical indication); or iterative reconstruction. Contrast material: ISOVUE; Contrast volume: 75 ml; Contrast route: IV; COMPARISON: CT ABDOMEN PELVIS W CON 30/10/2022 16:47 FINDINGS: Liver: Hepatic steatosis. Gallbladder and biliary ducts: Normal. No calcified stones. No ductal dilation. Pancreas: Normal. No ductal dilation. Spleen: Normal. No splenomegaly. Adrenal glands: Normal. No mass. Kidneys and ureters: Normal. No hydronephrosis. Stomach and bowel: Status post Naz fundoplication. The fundoplication is mostly intrathoracic, but this is unchanged. Appendix: Unremarkable appendix. Intraperitoneal space: Unremarkable. No free air. No significant fluid collection. Vasculature: Unremarkable. No abdominal aortic aneurysm. Lymph nodes: Unremarkable. No enlarged lymph nodes. Urinary bladder: Unremarkable as visualized. Reproductive: Unremarkable as visualized. Bones/joints: Unremarkable. No acute fracture. Soft tissues: Unremarkable. IMPRESSION: 1. No acute findings. 2. Hepatic steatosis.
[2024-01-26] MEDS: BELLADONNA ALKALOIDS 60 ML ML PO (19:55)
[2024-01-26] MEDS: ACETAMINOPHEN 1,000MG/100ML VIAL 1000 MG IV (19:56)
[2024-01-26] MEDS: LACTATED RINGERS 1000ML 1,000 ML 999 ML IV (19:56)
[2024-01-26] MEDS: KETOROLAC 30MG/ML VIAL 15 MG IV (19:57)
[2024-01-26] MEDS: SODIUM CHLORIDE 0.9% 10ML SYR (RAD ONLY) 10 ML IV (20:12)
[2024-01-26] MEDS: IOPAMIDOL-370 (76%);100ML BOTTLE 75 ML IV (20:12)
[2024-01-26 20:18] LABS: Basophils # 0.1 K/mm3 (0-0.2); Basophils % 1.9 % (0.1-2.0); Eosinophils # 0.1 K/mm3 (0.0-0.4); Eosinophils % 1.7 % (0.1-12.0); Hematocrit 46.1 % (42.0-52.0); Hemoglobin 15.2 g/dL (14.1-18.0); Lymphocytes # 2.3 K/mm3 (0.7-4.5); Lymphocytes % 34.9 % (10-50); Monocytes # 0.6 K/mm3 (0.1-1.0); Monocytes % 9.3 % (1.7-9.3); Neutrophils # 3.5 K/mm3 (1.8-7.8); Neutrophils % 52.2 % (37.0-80.0); Platelet Count 245 K/mm3 (142-424); Red Blood Count 4.91 M/mm3 (4.60-6.20); Red Cell Distribution Width 13.4 % (11.5-17.5); White Blood Count 6.7 K/mm3 (4.8-10.8)
[2024-01-26 20:22] LABS: Chloride 100 mmol/L (98-107); Sodium 137 mmol/L (136-145)
[2024-01-26 20:23] LABS: Potassium 4.3 mmoL/L (3.5-5.1)
[2024-01-26 20:25] LABS: Alanine Aminotransferase 25 U/L (12-78); Albumin Level 4.2 g/dl (3.5-5.0); Albumin/Globulin Ratio 1.4 (1.1-1.8); Alkaline Phosphatase 114 U/L (38-126); Anion Gap 9.3 mEq/L (5-15); Aspartate Amino Transferase 28 U/L (17-59); Bilirubin,Total 0.3 mg/dl (0.2-1.3); Blood Urea Nitrogen 16 mg/dl (9-20); Calcium 9.3 mg/dl (8.4-10.2); Carbon Dioxide 32 mmol/L (22.0-30.0); Creatinine Clearance Estimated 191 mL/min (50-200); Estimated Glomerular Filt Rate 96 ml/min (>60); GFR (African American) 116 ML/MIN (>60); Glucose 95 mg/dl (74-100); Lipase 50 U/L (23-300); Total Protein,Serum 7.2 g/dl (6.3-8.2)
[2024-01-26 20:26] LABS: Magnesium 2.1 mg/dl (1.6-2.3)
[2024-01-26 20:37] LABS: Troponin I < 0.01 ng/ml (0.00-0.034)
[2024-01-26 20:43] LABS: Microscopic, Urine URINE MICROSCOPIC (MICROSCOPIC)
[2024-01-26 20:44] LABS: Appearance,Urine CLEAR (Clear); Bilirubin,Urine Negative (Negative); Blood, Urine Negative (Negative); Color,Urine YELLOW (Yellow); Glucose,Urine (UA) Negative (Negative); Ketones,Urine Negative (Negative); Leukocyte Esterase,Urine Negative (Negative); Nitrate,Urine Negative (Negative); Protein,Urine Negative (Negative); Specific Gravity, Urine >= 1.030 (1.005-1.030)
[2024-01-26 21:04] LABS: Bacteria,Urine 1+ /lpf; Mucus,Urine 1+ /lpf
[2024-01-26 22:13] VITALS: BP 150/70; PULSE 70; RESP 18; TEMP 36.6; O2SAT 98
== END 2024-01-26 22:13 | disposition home or self-care (01) ==
PROVIDERS: Physician Assistant; Emergency Provider Emergency Medicine; PCP Nurse Practitioner
DX: R10.13 Epigastric pain (principal); R11.0 Nausea
CPT/HCPCS: 74177; 80053; 81001; 83690; 83735; 84484; 85025; 96361; 96374; 96375; 99284; J0131; J1885; J7120; Q9967